=== PATIENT | female | born 1995 | race Caucasian/White ===

== ENCOUNTER 2020-09-27 10:17 | Emergency (ER) | payer SELFPAY ==
--- OUTSIDE RECORDS SUMMARY | 2020-09-27 10:20 | XMS REPORT | Continuity of Care Document ---
:1995 Author Organization [facility] t Address [address] [place] [address] Care Team Providers Name Role Phone JEANNA Attending Clinician Unavailable Jeanna Attending Clinician [place] Admitting Clinician Problems Condition Condition Condition Status Onset Resolution Last Treating Co mments Source Name Details Category Date Date Treatment Clinician Date Ankle pain Problem Active 2019-11-17 M emoria (finding) 06-03 04:01:40 l Ankle 00:00: [place] pain 00 (finding) Active 06/04/2019 Problem 11/17/2019 reports over the years she has had multiple ankle problems/ injuries. is on her feet at work alld day. wore ankle boot - had MRI's done. was instructed by doctor to take ankle boot off 10/18/2019 [facility] Vitamin D Problem Active 2019-11-17 Me moria deficiency 1- 04:01:40 l (disorder) Vitamin 00:00: Her chacon D 00 deficiency (disorder) Active 02/15/2012 Problem 11/17/2019 prescribe d vit d - [facility] will start vitamins after surgery [facility] Asthma Problem Active 1996-2019-11-17 Memor ia (disorder) 1- 04:01:40 l Asthma 00:00: Nguyễn (disorder) 00 Active 02/15/1996 Problem 11/17/2019 states related to anxiety attacks- Last used inhaler > 1 yr ago [facility] Swollen Problem Active 2019-11-17 Merlin will ankle 04:01:40 l (finding) Swollen Herm roxane ankle (finding) Active Problem 11/17/2019 [facility] Anxiety Problem Active 2019-11-17 Merlin will (finding) 04:01:40 l Anxiety Nguyễn (finding) Active Problem 11/17/2019 states no meds at this time [facility] Obesity Problem Active 2019-11-17 Merlin will (disorder) 04:01:40 l Obesity Nguyễn (disorder) Active Problem 11/17/2019 [facility] Sprain of Problem Active 2019-11-17 Me moria ankle 04:01:40 l (disorder) Sprain Herm roxane of ankle (disorder) Active Problem 11/17/2019 states over the years she has had multiple ankle injuries [facility] Instabilit Instabilit Problem Active U nivers y of right y of right it y of ankle ankle [place] [facility] Phys[facility] ans Sprain of Sprain of Problem Active Uni vers anterior anterior ity of talofib[place]ofibula [place] r ligament r ligament Ph ysici of right of right ans ankle, ankle, initial initial encounter encounter Posterior Posterior Problem Active Uni vers tibial tibial ity of tendinitis tendinitis [place] of right of right Physic i lower lower ans extremity extremity Ganglion Ganglion Problem Active Unive rs cyst of cyst of ity of right foot right foot [place] [facility] Right Right Problem Active Univers ankle pain ankle pain it y of [place] Physici ans Special Special Problem Active Univers screening screening ity of examinatio examinatio [place] for n for Physici other other ans specified specified viral viral diseases diseases Sprain of Sprain of Problem Active Uni vers anterior anterior ity of talofibula talofibula [place] ligament r ligament Ph ysici of right of right ans ankle, ankle, subsequent subsequent encounter encounter Plantar Plantar Problem Active Univers fasciitis fasciitis ity of [place] Physici ans Allergies, Adverse Reactions, Alerts Allergy Allergy Status Severity Reaction(s) Onset Inactive Treating Comm ents Source Name Type Date Date Clinician penicill penicill Active Moderate Merlin will in in l [place] Social History Social Habit Start Date Stop Date Quantity Comments Source Social History 2019-11-12 2019-11-[address] [facility] Kami weston 14:52:29 14:52:29 Smoking Status Start Date Stop Date Source Never smoked tobacco (finding) [facility] Physicians Medications Ordered Filled Start Stop Current Ordering Indication Dosage Frequency Signature Comments Components Source Medication Medication Date Date Medication? Clinician (SIG) Name Name [facility] 2019-02 No 600 mL, Memoria Medication 0-01 Soln-IV, l 15:17: IV, Once, first dose 11/15/19 10:17:00 CDT, stop date 11/15/19 10:17:00 CDT fentaNYL 2019-02 No 50 mcg = 1 Mem oria 0-01 mL, l 14:43: Injection, Nguyễn 00 IV, Once, first dose 11/15/19 9:43:00 CDT, stop date 11/15/19 9:43:00 CDT fentaNYL 2019-02 No 50 mcg = 1 Mem oria 0-01 mL, l 14:28: Injection, IV, Once, first dose 11/15/19 9:28:00 CDT, stop date 11/15/19 9:28:00 CDT [facility] 2019-02 No 1,000 mL, Memoria Medication 0-01 Soln-IV, l 13:45: IV, Once, first dose 11/15/19 8:45:00 CDT, stop date 11/15/19 8:45:00 CDT fentaNYL 2019-02 No 50 mcg = 1 Mem oria 0-01 mL, l 13:18: Injection, Nguyễn 00 IV, Once, first dose 11/15/19 8:18:00 CDT, stop date 11/15/19 8:18:00 CDT LR 1,000 mL 2019-02 No 1,000 mL, M emoria 0-01 IV, 75 l 13:04: mL/hr, start date 11/15/19 8:04:00 CDT, 2.3, m2 Saline Lock 2019-02 No 10 mL, Merlin will Flush 0-01 Soln, IV l 13:04: Push, As Indicated PRN for flush, first dose 11/15/19 8:04:00 CDT Bupivacaine 2019-02 No 300 mL, Mem oria 0.25% 300 0-01 Nerve l mL pump 300 13:04: Block, 5 He rmann mL 00 mL/hr, start date 11/15/19 8:04:00 CDT, 2.3, m2 Dilaudid 2019-02 No 0.5 mg = Memor ia 0-01 0.5 mL, l 13:04: Injection, Alden 00 IV Push, q10min PRN for pain severe (7-10), first dose 11/15/19 8:04:00 CDT Demerol HCl 2019-02 No 12.5 mg = M emoria 0-01 0.5 mL, l 13:04: Injection, Alden 00 IV Push, Once PRN for shivers, first dose 11/15/19 8:04:00 CDT Levalbutero 2019-02 No 0.63 mg = M emoria l 0.21 0-01 3 mL, l MG/ML 13:04: Soln, DHAVAL, Mahendra n Inhalant 00 Once PRN Solution for [Xopenex] wheezing, first dose 11/15/19 8:04:00 CDT Ondansetron 2019-02 No 4 mg = 2 Me moria 0-01 mL, l 13:04: Injection, Nguyễn 00 IV Push, q15min PRN for nausea, order duration: 2 doses, first dose 11/15/19 8:04:00 CDT, stop date Limited # of times Promethazin 2019-02 No 12.5 mg = M emoria e 0-01 0.5 mL, l 13:04: Injection, Ald[place] 00 IM, Once PRN for vomiting, first dose 11/15/19 8:04:00 CDT Labetalol 2019-02 No 5 mg = 1 Merlin will 0-01 mL, l 13:04: Injection, Nguyễn 00 IV Push, As Indicated PRN for hypertensi on, first dose 11/15/19 8:04:00 CDT, SBP Hold Parameter: less than 110 mmHg, HR Hold Parameter: less than 60 bpm Hydralazine 2019-02 No 10 mg = Mem oria 0-01 0.5 mL, l 13:04: Injection, Nguyễn 00 IV Push, As Indicated PRN for hypertensi on, first dose 11/15/19 8:04:00 CDT, SBP Hold Parameter: less than 110 mmHg Diphenhydra 2019-02 No 25 mg = Mem oria mine 0-01 0.5 mL, l 13:04: Injection, [place] 00 IV Push, Once PRN for itching, first dose 11/15/19 8:04:00 CDT ondansetron 2019-02 No 4 mg = 2 Me moria 0-01 mL, l 13:01: Injection, Nguyễn 00 IV, Once, first dose 11/15/19 8:01:00 CDT, stop date 11/15/19 8:01:00 CDT dexamethaso 2019-02 No 8 mg = 2 Me moria ne 0-01 mL, l 13:01: Injection, IV, Once, first dose 11/15/19 8:01:00 CDT, stop date 11/15/19 8:01:00 CDT ketorolac 2019-02 No 30 mg = 1 Mem oria 0-01 mL, l 13:01: Injection, IV, Once, first dose 11/15/19 8:01:00 CDT, stop date 11/15/19 8:01:00 CDT clindamycin 2019-02 No 900 mg, Mem oria 0-01 Soln-IV, l 13:00: IV Nguyễn 00 Piggyback, Once, first dose 11/15/19 8:00:00 CDT, stop date 11/15/19 8:00:00 CDT lidocaine 2019-02 No 60 mg = 3 Mem oria 0-01 mL, l 12:44: Injection, IV, Once, first dose 11/15/19 7:44:00 CDT, stop date 11/15/19 7:44:00 CDT propofol 2019-02 No 150 mg = Memor ia 0-01 15 mL, l 12:44: Emulsion, Nguyễn 00 IV, Once, first dose 11/15/19 7:44:00 CDT, stop date 11/15/19 7:44:00 CDT midazolam 2019-02 No 1 mg = 1 Merlin will 0-01 mL, l 12:42: Injection, Nguyễn IV, Once, first dose 11/15/19 7:42:00 CDT, stop date 11/15/19 7:42:00 CDT fentaNYL 2019-02 No 50 mcg = 1 Mem oria 0-01 mL, l 12:42: Injection, Nguyễn 00 IV, Once, first dose 11/15/19 7:42:00 CDT, stop date 11/15/19 7:42:00 CDT midazolam 2019-02 No 1 mg = 1 Merlin will 0-01 mL, l 12:22: Injection, Nguyễn 00 IV, Once, first dose 11/15/19 7:22:00 CDT, stop date 11/15/19 7:22:00 CDT fentaNYL 2019-02 No 50 mcg = 1 Mem oria 0-01 mL, l 12:22: Injection, Nguyễn 00 IV, Once, first dose 11/15/19 7:22:00 CDT, stop date 11/15/19 7:22:00 CDT Clindamycin 2019-02 No 900 mg, Mem oria 0-01 Soln-IV, l 12:00: IV [place] Piggyback, Once, infuse over 30 minutes, first dose 11/15/19 7:00:00 CDT, stop date 11/15/19 7:00:00 CDT, Prophylaxi s LR 1,000 mL 2019-02 No 1,000 mL, M emoria 0-01 IV, 30 l 11:18: mL/hr, Nguyễn 00 start date 11/15/19 6:18:00 CDT, 2.3, m2 Lidocaine 2019-02 No 0.2 mL, Memor ia 2% 0.2 mL 001 Injection, l IV Start 11:18: Subcutaneo Her chacon [[facility]] 00 us, Once PRN for other (see comment), first dose 11/15/19 6:18:00 CDT ergocalcife Yes 50,000 Merlin will rol 50,000 9-28 IntUnit = l intl units 14:45: 1 caps, Herm roxane (1.25 mg) 00 Oral, oral qWeek, 0 capsule Refill(s), supplement Vital Signs Vital Name Observation Time Observation Value Comments Source Respitory Rate 2019-11-15 16:44:00 [place] Heart Rate 2019-11-15 16:00:00 [facility] [place] Respitory Rate 2019-11-15 16:00:00 Memori al [place] Systolic (mm Hg) 2019-11-15 16:00:00 Merlin rial [place] Diastolic (mm Hg) 2019-11-15 16:00:00 Mem orial Nguy[address]n Heart Rate 2019-11-15 15:50:00 [facility] [address] Respitory Rate 2019-11-15 15:50:00 Memori al [place] Systolic (mm Hg) 2019-11-15 15:50:00 Merlin rial [address] Diastolic (mm Hg) 2019-11-15 15:50:00 Mem orial [address] Heart Rate 2019-11-15 15:40:00 [facility] [address] Systolic (mm Hg) 2019-11-15 15:40:00 Merlin rial [address] Diastolic (mm Hg) 2019-11-15 15:40:00 Mem orial [place] Temperature Oral (F) 2019-11-15 15:10:00 36.8 [facility] N[facility]n Temperature Oral (F) 2019-11-15 11:23:00 37 [facility] [place] Height 2019-11-15 11:23:00 160 cm [facility] [place] Height 2019-11-12 14:43:00 160 cm [facility] [place] Systolic blood 2019-10-18 15:09:00 153 mm[Hg] Univer sity of pressure [place] [facility]ician s Diastolic blood 2019-10-18 15:09:00 101 mm[Hg] Unive rsity of pressure [place] Physician s Body height 2019-10-18 15:09:00 63 [in_us] [facility] Physician s Weight 2019-10-18 15:09:00 300 [lb_av] [facility] Physician s Body mass index 2019-10-18 15:09:00 53.14 kg/m2 Unive rsity of (BMI) [Ratio] [place] [facility] Heart Rate 2019-10-18 15:09:00 101 /min [facility] Physician s Procedures Procedure Date / Time Performing Clinician Source Performed MR Ankle wo contrast [id number] 2020-[facility]-06 [facility] Promis [facility] Survey 2019-12-05 00:00:00 Uni versity [facility] Physicians APPLICATION SHORT LEG 2019-11-15 13:19:00 Willy al [place] SPLINT-CALF TO FOOT [id number] (Right)<sup>1</sup> ARTHROSCOPY ANKLE 2019-11-15 13:19:[address] [facility] Kami weston W/EXTENSIVE DEBRIBEMENT [id number] (Right)<sup>2</sup> COLLATERAL LIGAMENT 2019-11-15 13:19:[address] [facility] [place] PRIMARY REPAIR ANKLE [id number] (Right)<sup>3</sup> [UTP] Ortho - Surgery 2019-10-19 00:00:00 [facility] Scheduling Physicians [L] 2019 Novel Coronavirus 2019-10-19 00:00[facility] 2014-02-14 06:00:00 [facility] section<sup>4</sup> Cholecystectomy [facility] History of [place] o f [place] Section Physicians History of [facility] surgery Physicians History of Ankle Surgery [facility] Physicians Plan of Care Planned Activity Planned Date Details Comments Source Diagnostic Test 2019-10-19 [UTP] [facility] Pending 00:00:00 Surgery Scheduling Physician s [code = [UTP] Ortho - Surgery Scheduling] Diagnostic Test 2019-10-19 [L] 2019 [facility] Pending 00:00:00 Coronavirus Physicians (COVID-19), ARTURO [code = 906200] Encounters Start End Encounter Admission Attending Care Care Encounter Source Date/Time Date/Time Type Type Clinicians Facility Department ID 2020-05-14 2020-05-14 [facility] [id number] Univers 14:15:00 14:15:00 t; ERICKA MEEKS, - [place], DPM [place] [address] [place] DPM Physici ans 2020-05-06 2020-05-06 Appointdeshaun [facility] Orth[facility] [id number] Univers 10:45:00 10:45:00 t; ERICKA MEEKS, - [place], D[place] [address] [place] DPM Physici ans 2020-01-24 2020-01-24 Appointdeshaun [facility] Orth[facility] [id number] Univers 14:15:00 14:15:00 t; ERICKA MEEKS, - [place], DPM [place] [address] [place] DPM Physici ans 2019-12-28 2019-12-28 Appointdeshaun MEEKS [facility] [id number] Univers 10:15:00 10:15:00 t; ERICKA MEEKS, [place], DPM [place] DPM Physici ans 2019-12-27 2019-12-27 Appointdeshaun [facility] Orthopedics [id number] Univers 14:00:00 14:00:00 t; ERICKA MEEKS, - [place] D[place] DPM Physici ans 2019-12-14 2019-12-14 [facility] [id number] Univers 10:15:00 10:15:00 t; ERICKA MEEKS, - [place] D[place] DPM Physici ans 2019-11-26 2019-11-26 [facility] [id number] Univers 11:30:00 11:30:00 t; ERICKA MEEKS, - [place], D[place] DPM Physici ans 2019-11-15 2019-11-15 Outpatient nullFlavo [facility] [id number] Memoria 10:51:58 17:15:00 r [facility] 2019-11-15 2019-11-15 Outpatient nullFlavo [facility] [id number] Memoria 05:51:58 12:15:00 r [facility] 2019-11-15 2019-11-15 Outpatient Jeanna, [id number] 05:51:58 12:15:00 Ericka 8 2019-11-15 2019-11-15 [facility] [id number] Univers 07:30:00 07:30:00 t; ERICKA MEEKS, - [place], DPM [place] DPM Physici ans 2019-10-18 2019-10-18 [facility] [id number] Univers 14:30:00 14:30:00 t; ERICKA MEEKS, - [place], D[place] DPM Physici ans Results Test Description Test Time Test Comments Results Result Comments Source LABORATORY 2019-11-15 Negative, [facility] 11:18:00 Control [place] Present (11/15/19 6:18 AM)
--- NOTE | 2020-09-27 12:53 | RAD REPORT ---
EXAM DESCRIPTION: US - Transvaginal OB - 09/27/2020 12:32 pm CLINICAL HISTORY: VAGINAL BLEEDING, Preliminary findings provided at the time of the study. COMPARISON: No comparisons FINDINGS: Endovaginal and limited transabdominal sonography performed. No normal intrauterine gestational sac identified. A small 7 mm oval cystic mass in the cervix is not ed. This may simply be a nabothian cyst rather than a low-lying gestational sac. Endometrial stripe i s 11 mm with a normal endometrium - myometrium interface. No discrete endometrial mass or polyp. Left ovary is identified and normal. No left adnexal abnormality. Right ovary could not be identified due to prominent bowel. No right adnexal abnormality. IMPRESSION: No intrauterine gestational sac or sac remnant identified. No sonographic findings to stein spect ectopic . A 7 mm cystic mass in the cervix may simply be a nabothian cyst rather than abnormally positioned ges tational sac or blighted ovum. Follow-up sonography could be performed if serial beta HCG studies indicate ongoing .
[2020-09-27 13:28] LABS: Absolute Lymphocytes (CBC) 2.5 K/uL (0.7-4.9); Basophils % 1.3 % (0-1.3); Hematocrit 43.6 % (36.0-45.0); Lymphocytes % 30.7 % (15.3-44.8); MPV 9.3 fL (7.6-11.3); RBC Red Blood Cell Count 5.37 M/uL (3.86-4.86)
[2020-09-27 13:47] LABS: BUN Blood Urea Nitrogen 16 mg/dL (7-18); Bicarbonate 26 mmol/L (21-32); Glucose Level 90 mg/dL (74-106); HCG, Quantitative 17 mIU/mL (1-3); Potassium 3.7 mmol/L (3.5-5.1); Sodium Level 140 mmol/L (136-145)
--- NOTE | 2020-09-27 14:43 | EDPHYS ---
Physician Documentation [facility] Name: Jane Lechuga Age: 25 yrs Sex: Female : 1995 Arrival Date: 09/27/2020 Time: 10:19 Bed DIS2 Private MD: ED Physician Gee Moulton HPI: 09/27 15:05 This 25 yrs old Female presents to ER via Ambulatory with complaints of tw4 Vaginal Bleeding, + Preg <12wks. 15:05 The patient presents to the emergency department with vaginal bleeding, described as tw4 spotting. course: care: none. Associated signs and symptoms: The patient has no apparent associated signs or symptoms. The patient has not experienced similar symptoms in the past. VERIFICATION ENGINEER: 15:05 1, Full Term 0, Premature 0, 0, Living 0 tw4 Historical: - Allergies: 10:43 PENICILLINS; ss - PMHx: 10:43 Asthma; ss - PSHx: 10:43 R ankle; section; Cholecystectomy; ss - Immunization history:: Adult Immunizations up to date. - Social history:: Smoking status: Patient denies any tobacco usage or history of. ROS: 15:05 Constitutional: Negative for fever, chills, and weight loss, Eyes: Negative for injury, tw4 pain, redness, and discharge, Cardiovascular: Negative for chest pain, palpitations, and edema, Respiratory: Negative for shortness of breath, cough, wheezing, and pleuritic chest pain, Abdomen/GI: Negative for abdominal pain, nausea, vomiting, diarrhea, and constipation, Back: Negative for injury and pain, Skin: Negative for injury, rash, and discoloration, Neuro: Negative for headache, weakness, numbness, tingling, and seizure, Psych: Negative for depression, anxiety, suicide ideation, homicidal ideation, and hallucinations. 15:05 : Positive for vaginal bleeding. Exam: 15:05 Constitutional: This is a well developed, well nourished patient who is awake, alert, tw4 and in no acute distress. Head/Face: Normocephalic, atraumatic. Chest/axilla: Normal chest wall appearance and motion. Nontender with no deformity. No lesions are appreciated. Cardiovascular: Regular rate and rhythm with a normal S1 and S2. No gallops, murmurs, or rubs. Normal PMI, no JVD. No pulse deficits. Respiratory: Lungs have equal breath sounds bilaterally, clear to auscultation and percussion. No rales, rhonchi or wheezes noted. No increased work of breathing, no retractions or nasal flaring. Abdomen/GI: Soft, non-tender, with normal bowel sounds. No distension or tympany. No guarding or rebound. No evidence of tenderness throughout. Back: No spinal tenderness. No costovertebral tenderness. Full range of motion. 15:05 : Pelvic Exam: The exam is refused by the patient/guardian. The risks and consequences are understood by the patient, the exam is deferred. Vital Signs: 10:42 BP 131 / 85; Pulse 71; Resp 16; Temp 97.3(TE); Pulse Ox 100% on R/A; Weight 131.54 kg; ss Height 5 ft. 3 in. (160.02 cm); Pain 2/10; 10:42 Body Mass Index 51.37 (131.54 kg, 160.02 cm) ss MDM: 14:42 Patient medically screened. tw4 15:05 Data reviewed: vital signs, nurses notes. Data reviewed: lab test result(s), Beta HCG: tw4 hCG is 17 radiologic studies, ultrasound. Data interpreted: Pulse oximetry: Interpretation: normal. Counseling: I had a detailed discussion with the patient and/or guardian regarding: the historical points, exam findings, and any diagnostic results supporting the discharge/admit diagnosis, lab results, radiology results. Special discussion: I discussed with the patient/guardian in detail that at this point there is no indication for admission to the hospital. It is understood, however, that if the symptoms persist or worsen the patient needs to return immediately for re-evaluation. Based on the history and exam findings, there is no indication for further emergent testing or inpatient evaluation. I discussed with the patient/guardian the need to see the OB Gyne specialist for further evaluation of the symptoms. 09/27 10:46 Order name: Abo/rh Typing [facility] 09/27 10:46 Order name: Basic Metabolic Panel [facility] 09/27 10:46 Order name: CBC with Diff [facility] 09/27 10:46 Order name: Quantitative Hcg 09/27 10:46 Order name: ABO/RH typing EDSD 09/27 10:46 Order name: Basic Metabolic Panel; Complete Time: 14:39 EDMS 09/27 14:39 Interpretation: Normal except: CL 111. tw4 09/27 10:46 Order name: IV Saline Lock; Complete Time: 13:05 tw4 09/27 10:46 Order name: Labs collected and sent; Complete Time: 13:05 tw4 09/27 10:46 Order name: NPO; Complete Time: 13:05 tw4 09/27 10:46 Order name: Urine Dipstick-Ancillary (obtain specimen) tw4 09/27 10:46 Order name: CBC with Automated Diff; Complete Time: 14:39 EDMS 09/27 14:39 Interpretation: Normal except: RBC 5.37; MCH 27.3; MCV 81.1. tw4 09/27 10:46 Order name: HCG, Quantitative; Complete Time: 14:38 EDMS 09/27 14:39 Interpretation: Within normal limits: HCGQ 17. tw4 09/27 12:32 Order name: Transvaginal OB EDMS Administered Medications: No medications were administered Disposition Summary: 09/27/20 14:42 Discharge Ordered Location: Home tw4 Problem: new tw4 Symptoms: have improved tw4 Condition: Stable tw4 Diagnosis - Abnormal uterine and vaginal bleeding, unspecified tw4 Followup: tw4 - With: Private Physician - When: Upon discharge from the Emergency Department - Reason: Recheck today's complaints, Continuance of care, Re-evaluation by your physician Discharge Instructions: - Discharge Summary Sheet tw4 - Abnormal Uterine Bleeding tw4 - Dysfunctional Uterine Bleeding tw4 Forms: - Medication Reconciliation Form tw4 - Thank You Letter tw4 - Antibiotic Education tw4 - Prescription Opioid Use tw4 Signatures: Dispatcher [employer] EDMS Rachelle Pompa RN RN Gee Willoughby MD MD tw4 Corrections: (The following items were deleted from the chart) 12:32 10:46 1st Trimest Single 1st Fetus+US.RAD.BRZ ordered. EDSD EDMS
--- NOTE | 2020-09-27 14:43 | ER ---
Nurse's Notes [facility] Name: Jane Lechuga Age: 25 yrs Sex: Female : 1995 Arrival Date: 09/27/2020 Time: 10:19 Bed DIS2 Private MD: Diagnosis: Abnormal uterine and vaginal bleeding, unspecified Presentation: 09/27 10:42 Chief complaint: Patient states: +UPT last week. Vaginal spotting that began this ss morning. Coronavirus screen: Client denies travel out of the [place] in the last 14 days. Ebola Screen: Patient denies exposure to infectious person. Patient denies travel to an Ebola-affected area in the 21 days before illness onset. Initial Sepsis Screen: Does the patient meet any 2 criteria? No. Patient's initial sepsis screen is negative. Does the patient have a suspected source of infection? No. Patient's initial sepsis screen is negative. Risk Assessment: Do you want to hurt yourself or someone else? Patient reports no desire to harm self or others. Onset of symptoms was September 27, 2020. 10:42 Method Of Arrival: Ambulatory ss 10:42 Acuity: LENORE 3 ss FISHER NET: 15:05 1, Full Term 0, Premature 0, 0, Living 0 tw4 Historical: - Allergies: 10:43 PENICILLINS; ss - PMHx: 10:43 Asthma; ss - PSHx: 10:43 R ankle; section; Cholecystectomy; ss - Immunization history:: Adult Immunizations up to date. - Social history:: Smoking status: Patient denies any tobacco usage or history of. Screenin:11 Abuse screen: Denies threats or abuse. Denies injuries from another. Nutritional ss screening: No deficits noted. Tuberculosis screening: Never had TB. Fall Risk None identified. Assessment: 15:11 Reassessment: Patient appears in no apparent distress at this time. Patient and/or ss family updated on plan of care and expected duration. Pain level reassessed. Patient is alert, oriented x 3, equal unlabored respirations, skin warm/dry/pink. Vital Signs: 10:42 BP 131 / 85; Pulse 71; Resp 16; Temp 97.3(TE); Pulse Ox 100% on R/A; Weight 131.54 kg; ss Height 5 ft. 3 in. (160.02 cm); Pain 2/10; 10:42 Body Mass Index 51.37 (131.54 kg, 160.02 cm) ED Course: 10:19 Patient arrived in ED. ds1 10:43 Triage completed. ss 10:43 Arm band placed on right wrist. ss 10:59 Gee Moulton MD is Attending Physician. tw4 12:32 Transvaginal OB In Process Unspecified. EDMS 13:04 Inserted saline lock: 20 gauge in left antecubital area, using aseptic technique. Blood 4 collected. 15:10 Rachelle Pompa, RN is Primary Nurse. ss 15:11 Patient has correct armband on for positive identification. ss 15:11 No provider procedures requiring assistance completed. IV discontinued, intact, ss bleeding controlled, No redness/swelling at site. Pressure dressing applied. Administered Medications: No medications were administered Outcome: 14:42 Discharge ordered by . tw4 15:11 Discharged to home ambulatory. ss 15:11 Condition: good 15:11 Discharge instructions given to patient, Instructed on discharge instructions, follow up and referral plans. medication usage, Demonstrated understanding of instructions, follow-up care. 15:12 Patient left the ED. Signatures: Dispatcher [employer] EDOH Jennifer Graf ds1 Rachelle Pompa, MIKAYLA RN Gee Moutlon MD MD tw4 Erwin Robison 4
[2020-09-27 15:45] VITALS: BP 131/85; TEMP 97.3; O2SAT 100
== END 2020-09-27 15:12 | disposition home or self-care (01) ==
LOC: ER 10:17
DX: N93.9 Abnormal uterine and vaginal bleeding, unspecified (principal); Z88.0 Allergy status to penicillin
CPT/HCPCS: 36415; 76817; 80048; 84702; 85025; 86900; 86901; 99283

== ENCOUNTER 2022-12-16 19:42 | Emergency (ER) | payer BC, SELFPAY ==
--- OUTSIDE RECORDS SUMMARY | 2022-12-16 19:47 | XMS REPORT | Continuity of Care Document ---
:1995 Author Organization [facility] t Address [address] [place] [address] Care Team Providers Name Role Phone No , Pcp Primary Care Physician Unavailable ERICKA MEEKS S Attending Clinician Unavailable ERICKA MEEKS Attending Clinician Unavailable NANCY RICO Attending Clinician Unavailable Joanna Marinelli RD Attending Clinician GERI Attending Clinician Unavailable SARAH Attending Clinician Unavailable ERICKA MEEKS DPM Attending Clinician Unavailable Joseph Attending Clinician Unavailable GERI Admitting Clinician Unavailable SARAH Admitting Clinician Unavailable Ericka Meeks Admitting Clinician Joseph Admitting Clinician Unavailable Payers Payer Name Policy Type Policy Number Effective Date Expiration Date S ource [employer] P[employer] [id number] 2020 2020 [employer] 00:00:00 00:00:00 GENERIC INTERFACED [id number] 2021 2024 [facility] PLAN 00:00:00 00:00:00 [place] [id number] 2022 [facility] 00:00:00 [place] [id number] 2017 2023 00:00:00 00:00:00 Problems Condition Condition Condition Status Onset Resolution Last Treating Co mments Source Name Details Category Date Date Treatment Clinician Date Plantar Plantar Disease Active [facility] fasciitis fasciitis 08-10 Heal th 00:00: 00 Malaise Malaise Problem Active [place] - Commun[facility] 00:00: ty 00 [facility] Clin[facility] Pain of Pain of Problem Active [place] right knee Right Knee 03-08 Co [facility]i joint Joint 00:00: ty 00 [facility] Clin[facility] Prediabete Prediabete Problem Active 2021-02 Yong johnson s s 2-14 Communi 00:00: ty 00 [facility] Gastroesop Gastroesop Problem Active 2021-02 Yong johnson hageal hageal 2-07 Communi reflux Reflux 00:00: ty disease Disease 00 Hospita without without l esophagiti Esophagiti Cl inics s s Hyperglyce Hyperglyce Problem Active 2021-02 Yong johnson marciano marciano 2-07 Communi 00:00: ty 00 [facility]ospita l Clinics Migraine Migraine Problem Active 2021-02 Benefitter 03-15 Communi 00:00: ty 00 [facility] Clinics Adult Adult Problem Active 2021-02 [place] 03-15 Communi examinatio Examinatio 00:00: ty n n 00 Hospita l Clinics Obesity Obesity Problem Active 2021-02 [place] 03-15 Communi 00:00: ty 00 [facility]ospita [facility] Clinics Sprain of Sprain of Disease Active [facility] anterior anterior 8-10 Health talofibula talofibula 00:00: r ligament r ligament 00 of right of right ankle ankle Right foot Right foot Disease Active U T pain pain 2-08 Health 00:00: 00 Posterior Posterior Disease Active [facility] tibial tibial 1-10 Health tendinitis tendinitis 00:00: of right of right 00 lower lower extremity extremity Anterior Anterior Disease Active 2022-0 [facility] tibialis tibialis 1-10 Health tendinitis tendinitis 00:00: of right of right 00 lower lower extremity extremity Soft Soft Disease Active [facility] tissue tissue 1-10 Health mass mass 00:00: 00 Pain in Pain in Disease Active [facility] joint joint 1-10 Health involving involving 00:00: right right 00 ankle and ankle and foot foot Extensor Extensor Disease Active [facility] tendonitis tendonitis 1-10 He alth of foot of foot 00:00: 00 Ankle pain Ankle Problem Active 2019-11-03 M emoria (finding) pain 4-20 04:01:40 l (finding) 00:00: Nguyễn Active 00 06/04/2019 Problem 11/17/2019 reports over the years she has had multiple ankle problems/ injuries. States is on her feet at work alld day. wore ankle boot - had MRI's done. was instructed by doctor to take ankle boot off 10/18/2019 [facility] Pain in Pain in Problem Active [place] right foot Right Foot 3-09 Co m[facility]i 00:00: ty 00 Hospita Clinics Morbid Morbid Problem Active [place] obesity Obesity 1-06 Communi 00:00: ty 00 [facility]ospita Clinics Acute Acute Problem Active 2018- [place] pharyngiti Pharyngiti 7-25 Co mmuni s s 00:00: ty 00 Hospita Clinics Chronic Chronic Problem Active 2018- [place] bronchitis Bronchitis 7-25 Co mmuni 00:00: ty 00 Hospita l Clinics Acute left Acute Left Problem Active 2018- S weeny otitis Otitis 7-25 Communi media Media 00:00: ty 00 Hospita Clinics Dizziness Dizziness Problem Active 2017- Swe honorio 2-17 Communi 00:00: ty 00 Hospita Clinics Edema Edema Problem Active 2017- [place] 2-17 Communi 00:00: ty 00 Hospita Clinics Anxiety Anxiety Problem Active 2017- [place] disorder Disorder 8-23 Commun i 00:00: ty 00 Hospita l Clinics Chronic Chronic Problem Active 2017- [place] depression Depression 8-23 Co mmuni 00:00: ty 00 Hospita Clinics Attention Attention Problem Active 2017- [place] honorio deficit Deficit 8-23 Communi hyperactiv Hyperactiv 00:00: ty ity ity 00 Hospita disorder Disorder l Clinics Insomnia Insomnia Problem Active [place] 10-06 Communi 00:00: ty 00 [facility]ospita l Clinics Gastroesop Gastroesop Problem Active S alex griffiths hageal 10-06 Communi reflux Reflux 00:00: ty disease Disease 00 Hospita l Clinics Bipolar Bipolar Problem Active [place] disorder Disorder 10-06 Commun i 00:00: ty 00 Hospita l Clinics Vitamin D Vitamin D Problem Active 2019-11-17 Memoria deficiency deficiency 02-14 04:01:40 l (disorder) (disorder) 00:00: He rmann Active 00 02/15/2012 Problem 11/17/2019 prescribed vit d - states will start vitamins after surgery [facility] Asthma Asthma Problem Active 2019-11-17 Merlin will (disorder) (disorder) 02-14 04:01:40 l Active 00:00: Nguyễn 02/15/1996 00 Problem 11/17/2019 states related to anxiety attacks- Last used inhaler > 1 yr ago [facility] Instabilit Instabilit Problem Active U T y of right y of right Ph ysici ankle ankle ans joint joint Sprain of Sprain of Problem Active UT anterior anterior Physic i talofibula talofibula an s r ligament r ligament of right of right ankle, ankle, initial initial encounter encounter Posterior Posterior Problem Active UT tibial tibial Physici tendinitis tendinitis an s of right of right lower lower extremity extremity Ganglion Ganglion Problem Active UT cyst of cyst of Physici right foot right foot an s Right Right Problem Active UT ankle pain ankle pain Ph ysici ans Special Special Problem Active UT screening screening Phys ici examinatio examinatio an s n for n for other other specified specified viral viral diseases diseases Sprain of Sprain of Problem Active [facility] anterior anterior Physic i talofibula talofibula an s r ligament r ligament of right of right ankle, ankle, subsequent subsequent encounter encounter Plantar Plantar Problem Active [facility] fasciitis fasciitis Phys ici ans Swollen Swollen Problem Active 2019-11-17 Me moria ankle ankle 04:01:40 l (finding) (finding) Herm fatou Active Problem 11/17/2019 [facility] Anxiety Anxiety Problem Active 2019-11-17 Me moria (finding) (finding) 04:01:40 l Active [place] Problem 11/17/2019 states no meds at this time [facility] Sprain of Sprain of Problem Active 2019-11-17 Memoria ankle ankle 04:01:40 l (disorder) (disorder) Mani rmann Active Problem 11/17/2019 states over the years she has had multiple ankle injuries [facility] Allergies, Adverse Reactions, Alerts Allergy Allergy Status Severity Reaction(s) Onset Inactive Treating Comm ents Source Name Type Date Date Clinician Penicill Allergy Active Hives [facility] ins to 10-29 Health substan 00:00: e 00 penicill penicill Active Moderate Merlin will in in l Nguyễn PENICILL Allergy Active Severe Anaphylaxis [place] [facility] INS to Communi [facility] e Hospita l Clinics Social History Social Habit Start Date Stop Date Quantity Comments Source History of Passive smoker [facility] tobacco use Alcohol intake 2022-08-29 2022-08-29 Current drinker UT He alth 00:00:00 00:00:00 of alcohol (finding) Tobacco use and 2022-08-26 2022-08-26 Smokeless tobacco [facility] Health exposure 00:00:00 00:00:00 non-user Exposure to 2021-09-27 2021-10-07 Not sure [facility] SARS-CoV-2 00:00:00 15:15:00 (event) Social History 2019-11-12 2019-11-12 [facility] Kami sappfatou 14:52:29 14:52:29 Sex Ass[birth year] At [birth year] [facility] 00:00:00 00:00:00 Smoking Status Start Date Stop Date Source Never smoked tobacco (finding) [facility] Tobacco smoking consumption ID H ealth unknown Ex-smoker 2022-08-26 00:00:00 2022-08-26 00:00:00 [facility] Medications Ordered Filled Start Stop Current Ordering Indication Dosage Frequency Signature Comments Components Source Medication Medication Date Date Medication? Clinician (SIG) Name Name medroxyPROG 3-0 Yes [facility] ESTERone 7-12 Health (Provera) 00:00: 10 MG 00 tablet medroxyPROG 2023-0 Yes [facility] ESTERone 7-12 Health (Provera) 00:00: 10 MG 00 tablet medroxyPROG 2023-0 Yes [facility] ESTERone 7-12 Health (Provera) 00:00: 10 MG 00 tablet medroxyPROG 2023-0 Yes [facility] ESTERone 7-12 Health (Provera) 00:00: 10 MG 00 tablet No known 2021-0 No No known UT medications 8-24 medication He alth 15:28: s 10 cyclobenzap 2022-0 Yes [id number] 10mg Q.5D Take 1 UT rine 8-10 [id number] tablet (10 Health (Flexeril) 00:00: mg total) 10 MG 00 by mouth 2 tablet (two) times a day if needed for muscle spasms for up to 10 days. cyclobenzap 2021-0 Yes [id number] 10mg Q.5D Take 1 UT rine 8-10 [id number] tablet (10 Health (Flexeril) 00:00: mg total) 10 MG 00 by mouth 2 tablet (two) times a day if needed for muscle spasms for up to 10 days. cyclobenzap 2021-0 Yes [id number] 10mg Q.5D Take 1 UT rine 8-10 [id number] tablet (10 Health (Flexeril) 00:00: mg total) 10 MG 00 by mouth 2 tablet (two) times a day if needed for muscle spasms for up to 10 days. cyclobenzap 2021-0 Yes [id number] 10mg Q.5D Take 1 UT rine 8-10 [id number] tablet (10 Health (Flexeril) 00:00: mg total) 10 MG 00 by mouth 2 tablet (two) times a day if needed for muscle spasms for up to 10 days. cyclobenzap 2021-0 Yes [id number] 10mg Q.5D Take 1 UT rine 8-10 [id number] tablet (10 Health (Flexeril) 00:00: mg total) 10 MG 00 by mouth 2 tablet (two) times a day if needed for muscle spasms for up to 10 days. cyclobenzap 2021-0 Yes [id number] 10mg Q.5D Take 1 UT rine 8-10 [id number] tablet (10 Health (Flexeril) 00:00: mg total) 10 MG 00 by mouth 2 tablet (two) times a day if needed for muscle spasms for up to 10 days. cyclobenzap 2021-0 2022- No [id number] 10mg Q.5D Take 1 UT rine 8-10 08-21 [id number] tablet (10 Health (Flexeril) 00:00: 04:59 mg total) 10 MG 00 :00 by mouth 2 tablet (two) times a day if needed for muscle spasms for up to 10 days. No known No No known UT medications 2-08 medication He alth 09:52: s 05 No known No No known [facility] medications 1-10 medication He alth 09:19: s 40 Misc 2019-02 No 600 mL, Memoria Medication 0-01 Soln-IV, l 15:17: IV, Once, first dose 11/15/19 10:17:00 CDT, stop date 11/15/19 10:17:00 CDT fentaNYL 2019-02 No 50 mcg = 1 Mem oria 0-01 mL, l 14:43: Injection, IV, Once, first dose 11/15/19 9:43:00 CDT, stop date 11/15/19 9:43:00 CDT fentaNYL 2019-02 No 50 mcg = 1 Mem oria 0-01 mL, l 14:28: Injection, IV, Once, first dose 11/15/19 9:28:00 CDT, stop date 11/15/19 9:28:00 CDT Misc 2019-02 No 1,000 mL, Memoria Medication 0-01 Soln-IV, l 13:45: IV, Once, first dose 11/15/19 8:45:00 CDT, stop date 11/15/19 8:45:00 CDT fentaNYL 2019-02 No 50 mcg = 1 Mem oria 0-01 mL, l 13:18: Injection, IV, Once, first dose 11/15/19 8:18:00 CDT, [...] ia 0-01 0.5 mL, l 13:04: Injection, Nguyễn 00 IV Push, q10min PRN for pain severe (7-10), first dose 11/15/19 8:04:00 CDT Demerol HCl 2019-02 No 12.5 mg = M emoria 0-01 0.5 mL, l 13:04: Injection, [place] 00 IV Push, Once PRN for shivers, first dose 11/15/19 8:04:00 CDT Levalbutero 2019-02 No 0.63 mg = M emoria l 0.21 0-01 3 mL, l MG/ML 13:04: Soln, NEB, Mahendra n Inhalant 00 Once PRN Solution [...] e 0-01 0.5 mL, l 13:04: Injection, [place] 00 IM, Once PRN for vomiting, first dose 11/15/19 8:04:00 CDT Labetalol 2019-02 No 5 mg = 1 Merlin will 0-01 mL, l 13:04: Injection, [place] 00 IV Push, As Indicated PRN for [...] mine 0-01 0.5 mL, l 13:04: Injection, IV Push, Once PRN for itching, first dose 11/15/19 8:04:00 CDT ondansetron 2019-02 No 4 mg = 2 Me moria 0-01 mL, l 13:01: Injection, IV, Once, [...] Mem oria 0-01 Soln-IV, l 13:00: IV Piggyback, Once, first dose 11/15/19 8:00:00 CDT, stop date 11/15/19 8:00:00 CDT lidocaine 2019-02 No 60 mg = 3 Mem oria 0-01 mL, l 12:44: Injection, IV, Once, first dose 11/15/19 7:44:00 CDT, stop date 11/15/19 7:44:00 CDT propofol 2019-02 No 150 mg = Memor ia 0-01 15 mL, l 12:44: Emulsion, IV, Once, first dose 11/15/19 7:44:00 CDT, stop date 11/15/19 7:44:00 CDT midazolam 2019-02 No 1 mg = 1 Merlin will 0-01 mL, l 12:42: Injection, IV, Once, first dose 11/15/19 7:42:00 CDT, stop date 11/15/19 7:42:00 CDT fentaNYL 2019-02 No 50 mcg = 1 Mem oria 0-01 mL, l 12:42: Injection, [place] 00 IV, Once, first dose 11/15/19 7:42:00 CDT, stop date 11/15/19 7:42:00 CDT midazolam 2019-02 No 1 mg = 1 Merlin will 0-01 mL, l 12:22: Injection, [place] 00 IV, Once, first dose 11/15/19 7:22:00 CDT, stop date 11/15/19 7:22:00 CDT fentaNYL 2019-02 No 50 mcg = 1 Mem oria 0-01 mL, l 12:22: Injection, [place] 00 IV, Once, first dose 11/15/19 7:22:00 CDT, stop date 11/15/19 7:22:00 CDT Clindamycin 2019-02 No 900 mg, Mem oria 0-01 Soln-IV, l 12:00: IV [place] Piggyback, Once, infuse over 30 minutes, first dose 11/15/19 7:00:00 CDT, stop date 11/15/19 7:00:00 CDT, Prophylaxi s LR 1,000 mL 2019-02 No 1,000 mL, M emoria 0-01 IV, 30 l 11:18: mL/hr, start date 11/15/19 6:18:00 CDT, 2.3, m2 Lidocaine 2019-02 No 0.2 mL, Memor ia 2% 0.2 mL 001 Injection, l IV Start 11:18: Subcutaneo Her chacon [[facility]] 00 us, Once PRN for other (see comment), first dose 11/15/19 6:18:00 CDT ergocalcife Yes 50,000 Merlin will rol 50,000 9-28 IntUnit = l intl units 14:45: 1 caps, Herm fatou (1.25 mg) 00 Oral, oral qWeek, 0 capsule Refill(s), supplement cyclobenzap cyclobenzap No cyclobenza [place] rine 10 mg rine 10 mg daniella 10 Communi tablet TAKE tablet TAKE mg tablet ty 1 TABLET BY 1 TABLET BY TAKE 1 Hospita MOUTH 2 MOUTH 2 TABLET BY l TIMES A DAY TIMES A DAY MOUTH 2 Clinics IF NEEDED IF NEEDED TIMES A FOR MUSCLE FOR MUSCLE DAY IF SPASMS FOR SPASMS FOR NEEDED FOR UP TO 10 UP TO 10 MUSCLE DAYS. DAYS. SPASMS FOR UP TO 10 DAYS. metformin metformin No metformin [place] 500 mg 500 mg 500 mg Communi tablet Take tablet Take tablet ty 1 tablet 1 tablet Take 1 Hospi ta twice a day twice a day tablet l by oral by oral twice a Clinic s route for route for day by 30 days. 30 days. oral route for 30 days. pantoprazol pantoprazol No pantoprazo [place] e 40 mg e 40 mg le 40 mg Commu ni tablet,ana tablet,ana tablet,del ty yed release yed release ayed H ospita TAKE 1 TAKE 1 release l TABLET BY TABLET BY TAKE 1 Cli nics MOUTH TWICE MOUTH TWICE TABLET BY DAILY DAILY MOUTH DIRECTED DIRECTED TWICE DAILY DIRECTED phentermine phentermine No 1 Q1D phentermin [place] 37.5 mg 37.5 mg e 37.5 mg Comm uni tablet Take tablet Take tablet ty 1 tablet 1 tablet Take 1 Hospi ta every day every day tablet l by oral by oral every day Clin ics route for route for by oral 30 days. 30 days. route for 30 days. sertraline sertraline No sertraline [place] 50 mg 50 mg 50 mg Communi tablet Take tablet Take tablet ty 1 tablet 1 tablet Take 1 Hospi ta every day every day tablet l by oral by oral every day Clin ics route. route. by oral route. sumatriptan sumatriptan No sumatripta [place] 100 mg 100 mg n 100 mg Communi tablet TAKE tablet TAKE tablet ty 1 AT THE 1 AT THE TAKE 1 AT [facility] FIRST SIGN FIRST SIGN THE FIRST l OF A OF A SIGN OF A Clinics MIGRAINE MIGRAINE MIGRAINE AND REPEAT AND REPEAT AND REPEAT ONE TIME IN ONE TIME IN ONE TIME 2 HOURS IF 2 HOURS IF IN 2 HOURS NEEDED NEEDED IF NEEDED cholecalcif cholecalcif No 1capsul Q1W cholecalci [place] ida ida e(s) ferol Communi (vitamin (vitamin (vitamin ty D3) 1,250 D3) 1,250 D3) 1,250 Hospita mcg (50,000 mcg (50,000 mcg l unit) unit) (50,000 Clinics capsule capsule unit) Take 1 Take 1 capsule capsule capsule Take 1 every week every week capsule by oral by oral every week route for route for by oral 84 days. 84 days. route for 84 days. cyclobenzap cyclobenzap No cyclobenza [place] rine 10 mg rine 10 mg daniella 10 Communi tablet TAKE tablet TAKE mg tablet ty 1 TABLET BY 1 TABLET BY TAKE 1 Hospita MOUTH 2 MOUTH 2 TABLET BY l TIMES A DAY TIMES A DAY MOUTH 2 Clinics IF NEEDED IF NEEDED TIMES A FOR MUSCLE FOR MUSCLE DAY IF SPASMS FOR SPASMS FOR NEEDED FOR UP TO 10 UP TO 10 MUSCLE DAYS. DAYS. SPASMS FOR UP TO 10 DAYS. metformin metformin No metformin [place] 500 mg 500 mg 500 mg Communi tablet Take tablet Take tablet ty 1 tablet 1 tablet Take 1 Hospi ta twice a day twice a day tablet l by oral by oral twice a Clinic s route for route for day by 30 days. 30 days. oral route for 30 days. pantoprazol pantoprazol No pantoprazo [place] e 40 mg e 40 mg le 40 mg Commu ni tablet,ana tablet,ana tablet,del ty yed release yed release ayed H ospita TAKE 1 TAKE 1 release l TABLET BY TABLET BY TAKE 1 Cli nics MOUTH TWICE MOUTH TWICE TABLET BY DAILY DAILY MOUTH DIRECTED DIRECTED TWICE DAILY DIRECTED phentermine phentermine No 1 Q1D phentermin [place] 37.5 mg 37.5 mg e 37.5 mg Comm uni tablet Take tablet Take tablet ty 1 tablet 1 tablet Take 1 Hospi ta every day every day tablet l by oral by oral every day Clin ics route for route for by oral 30 days. 30 days. route for 30 days. sertraline sertraline No sertraline [place] 50 mg 50 mg 50 mg Communi tablet Take tablet Take tablet ty 1 tablet 1 tablet Take 1 Hospi ta every day every day tablet l by oral by oral every day Clin ics route. route. by oral route. sumatriptan sumatriptan No sumatripta [place] 100 mg 100 mg n 100 mg Communi tablet TAKE tablet TAKE tablet ty 1 AT THE 1 AT THE TAKE 1 AT [facility] FIRST SIGN FIRST SIGN THE FIRST l OF A OF A SIGN OF A Clinics MIGRAINE MIGRAINE MIGRAINE AND REPEAT AND REPEAT AND REPEAT ONE TIME IN ONE TIME IN ONE TIME 2 HOURS IF 2 HOURS IF IN 2 HOURS NEEDED NEEDED IF NEEDED cholecalcif cholecalcif No 1capsul Q1W cholecalci [place] ida ida e(s) ferol Communi (vitamin (vitamin (vitamin ty D3) 1,250 D3) 1,250 D3) 1,250 Hospita mcg (50,000 mcg (50,000 mcg l unit) unit) (50,000 Clinics capsule capsule unit) Take 1 Take 1 capsule capsule capsule Take 1 every week every week capsule by oral by oral every week route for route for by oral 84 days. 84 days. route for 84 days. compounded compounded No compounded [place] medication medication medication Communi Semaglutide Semaglutide Semaglutid ty /B12 0.3 ml /B12 0.3 ml e/B12 0.3 Hospita SQ, QW, SQ, QW, ml SQ, QW, l start 0.15 start 0.15 start 0.15 Clinics ml and ml and ml and increase as increase as increase tolerated. tolerated. as tolerated. cyclobenzap cyclobenzap No cyclobenza [place] rine 10 mg rine 10 mg daniella 10 Communi tablet TAKE tablet TAKE mg tablet ty 1 TABLET BY 1 TABLET BY TAKE 1 Hospita MOUTH 2 MOUTH 2 TABLET BY l TIMES A DAY TIMES A DAY MOUTH 2 Clinics IF NEEDED IF NEEDED TIMES A FOR MUSCLE FOR MUSCLE DAY IF SPASMS FOR SPASMS FOR NEEDED FOR UP TO 10 UP TO 10 MUSCLE DAYS. DAYS. SPASMS FOR UP TO 10 DAYS. azithromyci azithromyci No azithromyc [place] 250 mg n 250 mg in 250 mg da tablet TAKE tablet TAKE tablet [facility] TWO (2) TWO (2) TAKE TWO al TABLETS TABLETS (2) Health (500 MG) BY (500 MG) BY TABLETS [facility] ORAL ROUTE ORAL ROUTE (500 MG) h ONCE DAILY ONCE DAILY BY ORAL Program FOR 1 DAY, FOR 1 DAY, ROUTE ONCE THEN 1 THEN 1 DAILY FOR TABLET (250 TABLET (250 1 DAY, MG) ONCE MG) ONCE THEN 1 DAILY FOR 4 DAILY FOR 4 TABLET DAYS. DAYS. (250 MG) ONCE DAILY FOR 4 DAYS. metformin metformin No metformin [place] 500 mg 500 mg 500 mg Communi tablet Take tablet Take tablet ty 1 tablet 1 tablet Take 1 Hospi ta twice a day twice a day tablet l by oral by oral twice a Clinic s route for route for day by 30 days. 30 days. oral route for 30 days. ondansetron ondansetron No 1 Q7H ondansetro [place] 4 mg 4 mg n 4 mg Communi disintegrat disintegrat disintegra ty ing tablet ing tablet ting Hos matt Place 1 Place 1 tablet l tablet tablet Place 1 Clinics every 6-8 every 6-8 tablet hours by hours by every 6-8 translingua translingua hours by l route as l route as translingu needed for needed for al route 5 days. 5 days. as needed for 5 days. pantoprazol pantoprazol No pantoprazo [place] e 40 mg e 40 mg le 40 mg Commu ni tablet,ana tablet,ana tablet,del ty yed release yed release ayed H ospita TAKE 1 TAKE 1 release l TABLET BY TABLET BY TAKE 1 Cli nics MOUTH TWICE MOUTH TWICE TABLET BY DAILY DAILY MOUTH DIRECTED DIRECTED TWICE DAILY DIRECTED phentermine phentermine No 1 Q1D phentermin [place] 37.5 mg 37.5 mg e 37.5 mg Comm uni tablet Take tablet Take tablet ty 1 tablet 1 tablet Take 1 Hospi ta every day every day tablet l by oral by oral every day Clin ics route for route for by oral 30 days. 30 days. route for 30 days. sertraline sertraline No sertraline [place] 50 mg 50 mg 50 mg Communi tablet Take tablet Take tablet ty 1 tablet 1 tablet Take 1 Hospi ta every day every day tablet l by oral by oral every day Clin ics route. route. by oral route. sumatriptan sumatriptan No sumatripta [place] 100 mg 100 mg n 100 mg Communi tablet TAKE tablet TAKE tablet ty 1 AT THE 1 AT THE TAKE 1 AT [facility] FIRST SIGN FIRST SIGN THE FIRST l OF A OF A SIGN OF A Clinics MIGRAINE MIGRAINE MIGRAINE AND REPEAT AND REPEAT AND REPEAT ONE TIME IN ONE TIME IN ONE TIME 2 HOURS IF 2 HOURS IF IN 2 HOURS NEEDED NEEDED IF NEEDED ergocalcife ergocalcife No ergocalcif [place] (vitamin (vitamin (vitamin Epi scop D2) 1,250 D2) 1,250 D2) 1,250 al mcg (50,000 mcg (50,000 mcg H ealth unit) unit) (50,000 [facility] capsule capsule unit) h TAKE ONE TAKE ONE capsule Prog adan (1) (1) TAKE ONE CAPSULE(S) CAPSULE(S) (1) BY MOUTH BY MOUTH CAPSULE(S) EVERY WEEK. EVERY WEEK. BY MOUTH EVERY WEEK. Zithromax Zithromax No Zithromax [place] Z-Marvin 250 Z-Marvin 250 Z-Marvin 250 Communi mg tablet mg tablet mg tablet ty TAKE 2 TAKE 2 TAKE 2 Hospita TABLETS TABLETS TABLETS l (500 MG) BY (500 MG) BY (500 MG) Clinics ORAL ROUTE ORAL ROUTE BY ORAL ONCE DAILY ONCE DAILY ROUTE ONCE FOR 1 DAY FOR 1 DAY DAILY FOR THEN 1 THEN 1 1 DAY THEN TABLET (250 TABLET (250 1 TABLET MG) BY ORAL MG) BY ORAL (250 MG) ROUTE ONCE ROUTE ONCE BY ORAL DAILY FOR 4 DAILY FOR 4 ROUTE ONCE DAYS DAYS DAILY FOR 4 DAYS bupropion bupropion No 1 Q1D bupropion [place] HCl 150 mg HCl 150 mg HCl 150 mg Communi tablet,12 tablet,12 tablet,12 ty hr hr hr Hospita sustained-r sustained-r sustained- l elease(smok elease(smok release( Clinics ing ing abiolaing deterrent) deterrent) deterrent) Take 1 Take 1 Take 1 tablet tablet tablet every day every day every day by oral by oral by oral route. route. route. cyclobenzap cyclobenzap No cyclobenza [place] rine 10 mg rine 10 mg daniella 10 Communi tablet TAKE tablet TAKE mg tablet ty 1 TABLET BY 1 TABLET BY TAKE 1 Hospita MOUTH 2 MOUTH 2 TABLET BY l TIMES A DAY TIMES A DAY MOUTH 2 Clinics IF NEEDED IF NEEDED TIMES A FOR MUSCLE FOR MUSCLE DAY IF SPASMS FOR SPASMS FOR NEEDED FOR UP TO 10 UP TO 10 MUSCLE DAYS. DAYS. SPASMS FOR UP TO 10 DAYS. Deconex IR Deconex IR No Deconex IR [place] 10 mg-385 10 mg-385 10 mg-385 Communi mg tablet mg tablet mg tablet ty TAKE 1 TAKE 1 TAKE 1 Hospita TABLET BY TABLET BY TABLET BY l MOUTH EVERY MOUTH EVERY MOUTH Clinics 6 HOURS 6 HOURS EVERY 6 NEEDED FOR NEEDED FOR HOURS CONGESTION CONGESTION NEEDED FOR CONGESTION meclizine meclizine No 1 TID meclizine [place] 25 mg 25 mg 25 mg Communi tablet Take tablet Take tablet ty 1 tablet 3 1 tablet 3 Take 1 H ospita times a day times a day tablet 3 l by oral by oral times a Clinic s route as route as day by needed. needed. oral route as needed. hydrocodone hydrocodone No hydrocodon [place] 7.5 7.5 e 7.5 da mg-acetamin mg-acetamin mg-acetami [facility] ophen 325 ophen 325 nophen 325 al mg tablet mg tablet mg tablet Health TAKE ONE TAKE ONE TAKE ONE [facility] (1) (1) (1) h TABLET(S) TABLET(S) TABLET(S) Program BY MOUTH BY MOUTH BY MOUTH EVERY FOUR EVERY FOUR EVERY FOUR HOURS HOURS HOURS NEEDED FOR NEEDED FOR NEEDED FOR PAIN. PAIN. PAIN. pantoprazol pantoprazol No pantoprazo [place] e 40 mg e 40 mg le 40 mg Commu ni tablet,ana tablet,ana tablet,del ty yed release yed release ayed H ospita Take 1 Take 1 release l tablet tablet Take 1 Clinics twice a day twice a day tablet by oral by oral twice a route as route as day by directed directed oral route for 30 for 30 as days. days. directed for 30 days. risperidone risperidone No 1 Q1D risperidon [place] 3 mg tablet 3 mg tablet e 3 mg Communi Take 1 Take 1 tablet ty tablet tablet Take 1 Hospita every day every day tablet l by oral by oral every day Clin ics route at route at by oral bedtime. bedtime. route at bedtime. sumatriptan sumatriptan No sumatripta [place] 100 mg 100 mg n 100 mg Communi tablet take tablet take tablet ty 1 at the 1 at the take 1 at [facility] first sign first sign the first l of a of a sign of a Clinics migraine migraine migraine and repeat and repeat and repeat one time in one time in one time 2 hours if 2 hours if in 2 hours needed needed if needed cyclobenzap cyclobenzap No cyclobenza [place] rine 10 mg rine 10 mg daniella 10 Communi tablet TAKE tablet TAKE mg tablet ty 1 TABLET BY 1 TABLET BY TAKE 1 Hospita MOUTH 2 MOUTH 2 TABLET BY l TIMES A DAY TIMES A DAY MOUTH 2 Clinics IF NEEDED IF NEEDED TIMES A FOR MUSCLE FOR MUSCLE DAY IF SPASMS FOR SPASMS FOR NEEDED FOR UP TO 10 UP TO 10 MUSCLE DAYS. DAYS. SPASMS FOR UP TO 10 DAYS. Deconex IR Deconex IR No Deconex IR [place] 10 mg-385 10 mg-385 10 mg-385 Communi mg tablet mg tablet mg tablet ty TAKE 1 TAKE 1 TAKE 1 Hospita TABLET BY TABLET BY TABLET BY l MOUTH EVERY MOUTH EVERY MOUTH Clinics 6 HOURS 6 HOURS EVERY 6 NEEDED FOR NEEDED FOR HOURS CONGESTION CONGESTION NEEDED FOR CONGESTION ergocalcife ergocalcife No ergocalcif [place] ashley prieto Jannaroxanne (vitamin (vitamin (vitamin ty D2) 1,250 D2) 1,250 D2) 1,250 Hospita mcg (50,000 mcg (50,000 mcg l unit) unit) (50,000 Clinics capsule capsule unit) TAKE 1 TAKE 1 capsule CAPSULE CAPSULE TAKE 1 EVERY WEEK EVERY WEEK CAPSULE BY ORAL BY ORAL EVERY WEEK ROUTE. ROUTE. BY ORAL ROUTE. meclizine meclizine No 1 TID meclizine [place] 25 mg 25 mg 25 mg Communi tablet Take tablet Take tablet ty 1 tablet 3 1 tablet 3 Take 1 H ospita times a day times a day tablet 3 l by oral by oral times a Clinic s route as route as day by needed. needed. oral route as needed. Ozempic Ozempic No .25mg Q1W Ozempic [place] 0.25 mg or 0.25 mg or 0.25 mg or Communi 0.5 mg (2 0.5 mg (2 0.5 mg (2 ty mg/1.5 mL) mg/1.5 mL) mg/1.5 mL) Hospita subcutaneou subcutaneou subcutaneo l s pen s pen us pen [facility] injector injector injector Inject 0.25 Inject 0.25 Inject mg every mg every 0.25 mg week by week by every week subcutaneou subcutaneou by s route for s route for subcutaneo 28 days. 28 days. us route for 28 days. pantoprazol pantoprazol No 1 BID pantoprazo [place] e 40 mg e 40 mg le 40 mg Commu ni tablet,ana tablet,ana tablet,del ty yed release yed release ayed H ospita Take 1 Take 1 release l tablet tablet Take 1 Clinics twice a day twice a day tablet by oral by oral twice a route as route as day by directed directed oral route for 30 for 30 as days. days. directed for 30 days. pantoprazol pantoprazol No pantoprazo [place] 40 mg e 40 mg le 40 mg da tablet,ana tablet,ana tablet,del [facility] release yed release ayed a l TAKE 1 TAKE 1 release Health TABLET BY TABLET BY TAKE 1 Out reac MOUTH ONCE MOUTH ONCE TABLET BY h DAILY DAILY MOUTH ONCE Program DAILY risperidone risperidone No 1 Q1D risperidon [place] 3 mg tablet 3 mg tablet e 3 mg Communi Take 1 Take 1 tablet ty tablet tablet Take 1 Hospita every day every day tablet l by oral by oral every day Clin ics route at route at by oral bedtime. bedtime. route at bedtime. sumatriptan sumatriptan No sumatripta [place] 100 mg 100 mg n 100 mg Communi tablet TAKE tablet TAKE tablet ty 1 AT THE 1 AT THE TAKE 1 AT [facility] FIRST SIGN FIRST SIGN THE FIRST l OF A OF A SIGN OF A Clinics MIGRAINE MIGRAINE MIGRAINE AND REPEAT AND REPEAT AND REPEAT ONE TIME IN ONE TIME IN ONE TIME 2 HOURS IF 2 HOURS IF IN 2 HOURS NEEDED NEEDED IF NEEDED cyclobenzap cyclobenzap No cyclobenza [place] rine 10 mg rine 10 mg daniella 10 Communi tablet TAKE tablet TAKE mg tablet ty 1 TABLET BY 1 TABLET BY TAKE 1 Hospita MOUTH 2 MOUTH 2 TABLET BY l TIMES A DAY TIMES A DAY MOUTH 2 Clinics IF NEEDED IF NEEDED TIMES A FOR MUSCLE FOR MUSCLE DAY IF SPASMS FOR SPASMS FOR NEEDED FOR UP TO 10 UP TO 10 MUSCLE DAYS. DAYS. SPASMS FOR UP TO 10 DAYS. Deconex IR Deconex IR No Deconex IR [place] 10 mg-385 10 mg-385 10 mg-385 Communi mg tablet mg tablet mg tablet ty TAKE 1 TAKE 1 TAKE 1 Hospita TABLET BY TABLET BY TABLET BY l MOUTH EVERY MOUTH EVERY MOUTH Clinics 6 HOURS 6 HOURS EVERY 6 NEEDED FOR NEEDED FOR HOURS CONGESTION CONGESTION NEEDED FOR CONGESTION ergocalcife ergocalcife No ergocalcif [place] ashley Rothman (vitamin (vitamin (vitamin ty D2) 1,250 D2) 1,250 D2) 1,250 Hospita mcg (50,000 mcg (50,000 mcg l unit) unit) (50,000 Clinics capsule capsule unit) TAKE 1 TAKE 1 capsule CAPSULE CAPSULE TAKE 1 EVERY WEEK EVERY WEEK CAPSULE BY ORAL BY ORAL EVERY WEEK ROUTE. ROUTE. BY ORAL ROUTE. meclizine meclizine No 1 TID meclizine [place] 25 mg 25 mg 25 mg Communi tablet Take tablet Take tablet ty 1 tablet 3 1 tablet 3 Take 1 H ospita times a day times a day tablet 3 l by oral by oral times a Clinic s route as route as day by needed. needed. oral route as needed. metformin metformin No metformin [place] 500 mg 500 mg 500 mg Communi tablet Take tablet Take tablet ty 1 tablet 1 tablet Take 1 Hospi ta twice a day twice a day tablet l by oral by oral twice a Clinic s route for route for day by 30 days. 30 days. oral route for 30 days. pantoprazol pantoprazol No pantoprazo [place] e 40 mg e 40 mg le 40 mg Commu ni tablet,ana tablet,ana tablet,del ty yed release yed release ayed H ospita TAKE 1 TAKE 1 release l TABLET BY TABLET BY TAKE 1 Cli nics MOUTH TWICE MOUTH TWICE TABLET BY DAILY DAILY MOUTH DIRECTED DIRECTED TWICE DAILY DIRECTED promethazin promethazin No promethazi [place] e-DM 6.25 e-DM 6.25 ne-DM 6.25 Communi mg-15 mg/5 mg-15 mg/5 mg-15 mg/5 ty mL oral mL oral mL oral Hospit a syrup TAKE syrup TAKE syrup TAKE l 5 ML BY 5 ML BY 5 ML BY Clinic s MOUTH EVERY MOUTH EVERY MOUTH 6 HOURS 6 HOURS EVERY 6 NEEDED FOR NEEDED FOR HOURS COUGH COUGH NEEDED FOR COUGH risperidone risperidone No 1 Q1D risperidon [place] 3 mg tablet 3 mg tablet e 3 mg Communi Take 1 Take 1 tablet ty tablet tablet Take 1 Hospita every day every day tablet l by oral by oral every day Clin ics route at route at by oral bedtime. bedtime. route at bedtime. sertraline sertraline No 1 Q1D sertraline [place] 50 mg 50 mg 50 mg Communi tablet Take tablet Take tablet ty 1 tablet 1 tablet Take 1 Hospi ta every day every day tablet l by oral by oral every day Clin ics route. route. by oral route. sumatriptan sumatriptan No sumatripta [place] 100 mg 100 mg n 100 mg Communi tablet TAKE tablet TAKE tablet ty 1 AT THE 1 AT THE TAKE 1 AT spita FIRST SIGN FIRST SIGN THE FIRST l OF A OF A SIGN OF A Clinics MIGRAINE MIGRAINE MIGRAINE AND REPEAT AND REPEAT AND REPEAT ONE TIME IN ONE TIME IN ONE TIME 2 HOURS IF 2 HOURS IF IN 2 HOURS NEEDED NEEDED IF NEEDED cholecalcif cholecalcif No 1capsul Q1W cholecalci N[place] prieto e(s) ferol Communi (vitamin (vitamin (vitamin ty D3) 1,250 D3) 1,250 D3) 1,250 Hospita mcg (50,000 mcg (50,000 mcg l unit) unit) (50,000 Clinics capsule capsule unit) Take 1 Take 1 capsule capsule capsule Take 1 every week every week capsule by oral by oral every week route for route for by oral 84 days. 84 days. route for 84 days. Vital Signs Vital Name Observation Time Observation Value Comments Source Body height 2022-09-21 158.8 cm [facility] 14:19:00 Body weight 2022-09-21 138.574 kg Per last clinic [facility] 14:19:00 visit. BMI 2022-09-21 54.99 kg/m2 [facility] 14:19:00 Body height 2022-09-20 158.8 cm [facility] 13:46:00 Body weight 2022-09-20 138.574 kg [facility] 13:46:00 BMI 2022-09-20 54.99 kg/m2 [facility] 13:46:00 Respiratory rate 2022-08-26 16 /min [facility] 15:09:00 Body height 2022-08-26 162.6 cm [facility] 15:09:00 Body weight 2022-08-26 138.982 kg [facility] 15:09:00 BMI 2022-08-26 52.59 kg/m2 [facility] 15:09:00 Oxygen saturation 2022-08-26 97 /min [facility] in Arterial blood 15:09:00 by Pulse oximetry Systolic blood 2022-08-26 116 mm[Hg] [facility] pressure 15:09:00 Diastolic blood 2022-08-26 83 mm[Hg] [facility] pressure 15:09:00 Heart rate 2022-08-26 86 /min [facility] 15:09:00 Body temperature 2022-08-26 37.11 Smita [facility] 15:09:00 BP Diastolic 2022-04-14 81 mm[Hg] [facility] 00:00:00 Hospital [facility] Height 2022-04-14 63 [in_i] [place] [facility] 00:00:00 [facility] Clinic [facility] BMI (Body Mass 2022-04-14 54.9 kg/m2 [place] Commun ity Index) 00:00:00 Hospital Clinic s BP Systolic 2022-04-14 132 mm[Hg] [place] [facility] 00:00:00 [facility] Body Weight 2022-04-14 4960 [oz_av] [place] [facility] 00:00:00 [facility] BP Diastolic 2022-04-05 70 mm[Hg] [place] [facility] 00:00:00 Hospital Clinic s Height 2022-04-05 63 [in_i] [place] [facility] 00:00:00 Hospital Clinic [facility] BMI (Body Mass 2022-04-05 55.7 kg/m2 [place] Commun ity Index) 00:00:00 Hospital Clinic s BP Systolic 2022-04-05 110 mm[Hg] [place] [facility] 00:00:00 [facility] Body Weight 2022-04-05 5033.6 [oz_av] [place] [facility] 00:00:00 Hospital Clinic s BP Diastolic 2022-03-17 54 mm[Hg] [place] [facility] 00:00:00 Hospital Clinic [facility] Height 2022-03-17 63 [in_i] [place] [facility] 00:00:00 Hospital Clinic s BMI (Body Mass 2022-03-17 56 kg/m2 [place] Commun ity Index) 00:00:00 Hospital Clinic s BP Systolic 2022-03-17 105 mm[Hg] [place] [facility] 00:00:00 [facility] Clinic [facility] Body Weight 2022-03-17 5061 [oz_av] [place] [facility] 00:00:00 [facility] Clinic [facility] BP Diastolic 2022-03-08 74 mm[Hg] [place] [facility] 00:00:00 Hospital Clinic [facility] BP Systolic 2022-03-08 120 mm[Hg] [place] [facility] 00:00:00 Hospital Clinic [facility] Body Weight 2022-03-08 5100.8 [oz_av] [place] [facility] 00:00:00 Hospital Clinic [facility] BP Diastolic 2022-01-20 80 mm[Hg] [place] [facility] 00:00:00 [facility] Clinic [facility] BP Systolic 2022-01-20 150 mm[Hg] [place] [facility] 00:00:00 Hospital Clinic [facility] Body Weight 2022-01-20 5129.6 [oz_av] [place] [facility] 00:00:00 Hospital Clinic s BP Diastolic 2022-01-13 75 mm[Hg] [place] [facility] 00:00:00 Hospital Clinic [facility] BP Systolic 2022-01-13 110 mm[Hg] [place] [facility] 00:00:00 Hospital Clinic s Body Weight 2022-01-13 5056 [oz_av] [place] [facility] 00:00:00 Hospital Clinic [facility] Body height 2021-03-24 160 cm [facility] 15:51:00 Body weight 2021-03-24 136.079 kg [facility] 15:51:00 BMI 2021-03-24 53.14 kg/m2 [facility] 15:51:00 Respitory [facility]15 [facility] 16[facility]44[facility]00 Heart Rate 2019-11-15 [facility] 16:[facility] Respitory Rate 2019-11-15 [facility] 16:00:00 Systolic (mm Hg) 2019-11-15 [facility] 16:00:00 Diastolic (mm Hg) 2019-11-15 [facility] 16:00:00 Heart Rate 2019-11-15 [facility] 15:50:00 Respitory Rate 2019-11-15 [facility] 15:50:00 Systolic (mm Hg) 2019-11-15 [facility] 15:50:00 Diastolic (mm Hg) 2019-11-15 [facility] 15:50:00 Heart Rate 2019-11-15 [facility] 15:40:00 Systolic (mm Hg) 2019-11-15 [facility] 15:40:00 Diastolic (mm Hg) 2019-11-15 [facility] 15:40:00 Temperature Oral 2019-11-15 36.8 [facility] 15:10:00 Temperature Oral 2019-11-15 37 Smita [facility] (F) 11:23:00 Height 2019-11-15 160 cm [facility] 11:23:00 Height 2019-11-12 160 cm [facility] 14:43:00 Systolic blood 2019-10-18 153 mm[Hg] [facility] pressure 15:09:00 Diastolic blood 2019-10-18 101 mm[Hg] [facility] pressure 15:09:00 Body height 2019-10-18 63 [in_us] [facility] 15:09:00 Weight 2019-10-18 300 [lb_av] [facility] 15:09:00 Body mass index 2019-10-18 53.14 kg/m2 [facility] (BMI) [Ratio] 15:09:00 Heart Rate 2019-10-18 101 /min [facility] 15:09:00 Procedures Procedure Date / Time Performing Clinician Source Performed MR Ankle wo contrast [id number] 2020-05-06 00:00:00 [facility] Post Op Promis 29 Survey 2019-12-05 00:00:00 [facility] APPLICATION SHORT LEG 2019-11-15 13:19:00 Willy Hernandez SPLINT-CALF TO FOOT [id number] (Right)<sup>1</sup> ARTHROSCOPY ANKLE 2019-11-15 13:19:00 [facility] trista W/EXTENSIVE DEBRIBEMENT [id number] (Right)<sup>2</sup> COLLATERAL LIGAMENT 2019-11-15 13:19:00 [facility] PRIMARY REPAIR ANKLE [id number] (Right)<sup>3</sup> [UTP] Ortho - Surgery 2019-10-19 00:00:00 [facility] Sched[facility] [L] 2019 Novel Coronavirus 2019-10-19 00:00:00 [facility] (COVID-19), ARTURO 2014-02-14 06:00:[address] [facility] section<sup>4</sup> [facility] of [facility] of Gallbladder [facility]le [facility] Caesarean Section [facility] Cholecystectomy [facility] Plan of Care Planned Activity Planned Date Details Comments Source Diagnostic Test 2022-04-05 HbA1c (hemoglobin [facility] Pending 00:00:00 A1c), blood [code = Hospital [facility] HbA1c (hemoglobin A1c), blood] Diagnostic Test 2019-10-19 [[facility]] [facility] - [facility] 00:00:00 Surgery Scheduling [code = [UTP] Ortho - Surgery Scheduling] Diagnostic Test 2019-10-19 [L] 2019 Novel [facility] Pending 00:00:00 Coronavirus (COVID-19), ARTURO [code = 675886] Encounters Start End Encounter Admission Attending Care Care Encounter Source Date/Time Date/Time Type Type Clinicians Facility Department ID 2022-09-16 Outpatient [facility] [id number] [place] 08:55:18 [id number] [facility] 2022-09-09 Outpatient [facility] [id number] [place] 13:26:35 [id number] [facility] 2022-08-26 Outpatient [facility] [id number] [place] 11:19:46 [id number] [facility] 2022-08-16 [facility] [id number] [place] 13:00:00 [id number] 2022-08-16 Outpatient [facility] [id number] [place] 08:16:50 [id number] [facility] 2022-08-12 Outpatient [facility] [id number] [place] 11:31:34 [id number] [facility] 2022-08-10 Outpatient [facility] [id number] [place] 13:04:17 [id number] [facility] 2022-08-09 Outpatient [facility] [id number] [place] 08:13:17 [id number] [facility] 2022-03-16 Outpatient [facility] [id number] [place] 14:10:37 [id number] [facility] 2021-03-23 Outpatient JEANNA, [facility] [id number] [place] 12:24:18 [facility] 2021-03-23 Outpatient JEANNA, [facility] [id number] [place] 09:42:01 [facility] 2021-03-19 Outpatient JEANNA, [facility] [id number] [place] 13:46:50 [facility] 2021-02-23 Outpatient [facility] [id number] [place] 10:02:50 [facility] 2021-02-18 Outpatient JEANNA, [facility] [id number] [place] 10:45:22 [facility] 2022-11-22 2022-11-22 Outpatient COWLING, [facility] [id number] [place] 09:00:00 09:00:00 [facility] 2022-10-21 2022-10-21 Outpatient COWLING, [facility] [id number] [place] 11:00:00 11:00:00 [facility] 2022-09-21 2022-09-21 Nutrition Tanchico, [facility] [id number] [place] 09:15:00 09:43:17 [facility]anna [id number] [facility] [id number] [facility] [id number] 2022-09-20 2022-09-20 Nutrition [place], [facility] [id number] [place] 08:45:00 09:10:53 Joanna [facility] [id number] [place] [address] [id number] 2022-09-16 2022-09-16 Outpatient JACKY, [facility] [id number] [place] 09:15:00 09:15:00 [facility] 2022-09-14 2022-09-14 Outpatient DOLLY, [facility] [id number] [place] 09:45:00 09:45:00 [facility] 2022-08-26 2022-08-26 Office Jacky, [facility] [id number] [place] 10:30:00 11:11:13 Visit Nancy SE MED [id number] [place] [address] [id number] 2022-08-19 2022-08-19 Outpatient JACKY, [facility] [id number] [place] 10:30:00 10:30:00 [facility] 2022-08-10 2022-08-10 Outpatient [facility] [id number] [place] 00:00:00 14:01:29 [facility] 2022-08-10 2022-08-10 Office Jeanna, [facility] [id number] [place] 13:30:00 14:01:15 Visit Ericka SUGAR [id number] [place] [id number] 2022-06-11 2022-06-11 Outpatient KEFFER_A [facility] [id number] [place] 00:00:00 00:00:00 428 [facility] 2022-05-28 2022-05-28 Outpatient KEFFER_A [facility] [id number] [place] 00:00:00 00:00:00 414 [facility] 2022-04-14 2022-04-14 Outpatient JAK_Adore [facility] [id number] [place] 00:00:00 00:00:00 301 [facility] i ty [facility] Clinics 2022-04-14 2022-04-14 Mahamed [facility] [place] 00:00:00 00:00:00 Whitley Al MSN, 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 [facility], [facility] s [address], [facility] [address], Nessa Al [place] MSN, [employer]-C [id number] , Ph. 2022-04-05 2022-04-05 Outpatient JAK_Adore [facility] [id number] [place] 00:00:00 00:00:00 220 Commun i ty [facility] l Clinics 2022-04-05 2022-04-05 Zunilda Hunter [facility] [place] 00:00:00 00:00:00 Whitley Bhagat MD: [address] Hospital ty [facility] a [address], [facility] l [address], HOSPITAL Clinic s [place], [id number] JAK , Ph. 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 [facility], [facility] s [address], [facility] [address], Nessa Al [place] MSN, [employer]-C [id number] , Ph. 2022-03-08 2022-03-08 Outpatient JAK_Adore [facility] [id number] [place] 00:00:00 00:00:00 123 [facility] i ty [facility] Clinics 2022-03-08 2022-03-08 Outpatient KEFFER_A [facility] [id number] [place] 00:00:00 00:00:00 201 Commun i ty [facility] Clinics 2022-03-08 2022-03-08 Zunilda Hunter [facility] [place] 123 [place] 00:00:00 00:00:00 Whitley Bhagat MD: [address] [facility] [address] COMM[facility] l [address], H[facility] [place], [place] CL[place]IC, [address] JAK , Ph. 2022-01-20 2022-01-20 Outpatient ANATFFER_A [facility] [id number] [place] 00:00:00 00:00:00 207 Commun i ty [facility]osp[facility] l Clinics 2022-01-20 2022-01-20 Zunilda Hunter [facility] [place] 207 [place] 00:00:00 00:00:00 Whitley [facility]agat MD: [address] [facility] [address] COMM[facility] [address], [facility] [place], [place]IC, [address] JAK , Ph. 2022-01-14 2022-01-14 Outpatient ANATFFER_A [facility] [id number] [place] 00:00:00 00:00:00 201 Commun i ty [facility]osp[facility] Clinics 2022-01-13 2022-01-13 Outpatient KEFFER_A [facility] [id number] [place] 00:00:00 00:00:00 130 Commun i ty H[facility] l Clinics 2022-01-13 2022-01-13 Zunilda Hunter [facility] [place] 130 [place] 00:00:00 00:00:00 Whitley Bhagat MD: [address] [facility] Hospit a [address], COMMUNITY l [address], HOSP[facility] [place], [place] CL[place]IC, [address] JAK , Ph. 2021-10-07 2021-10-07 Office NIK Meeks [facility]THO [id number] [place] 15:30:00 16:00:30 Visit Ericka SUGAR [id number] [place] [id number] 2021-09-23 2021-09-23 Office Jeanna [facility] [id number] [place] 15:30:00 16:30:23 Visit Ericka SUGAR [id number] [place]th [place] [id number] 2021-03-24 2021-03-24 Office Jeanna [facility] ORTHO [id number] [place] 09:45:00 10:51:41 Visit Ericka SUGAR [id number] He alth [place] [id number] 2021-03-24 2021-03-24 Outpatient JEANNA, [facility] [id number] [place] 09:45:00 09:45:00 [facility] Health 2021-03-23 2021-03-23 Outpatient JEANNA, [facility] [id number] [place] 09:45:00 09:45:00 [facility] Health 2021-02-23 2021-02-23 Office Jeanna [facility] ORTHO [id number] [place] 09:15:00 10:36:33 Visit Ericka SUGAR [id number] He [place]th [place] [id number] 2020-10-06 2020-10-06 Outpatient LISTER_MELI [place] [id number] [place] 11:58:00 11:58:00 [facility] 2020-09-25 2020-09-25 Outpatient LISTER_MELI MEHOP [facility] [id number] [place] 01:09:00 01:09:00 [facility] 2020-09-24 2020-09-24 Outpatient LISTER_MELI MEHOP [facility] [id number] [place] 12:59:00 12:59:00 [facility] 2020-09-24 2020-09-24 Roberta MENCHACA [place] - [id number] [place] 00:00:00 00:00:00 Fatou Navarrete, [facility] 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 2020-05-14 2020-05-14 [facility] [id number] [place] 14:15:00 14:15:00 t; ERICKA MEEKS, - Sugar Phys ici ERICKA, DPM [place] 1 ans DPM 2020-05-06 2020-05-06 [facility] [id number] [place] 10:45:00 10:45:00 t; ERICKA MEEKS, - [place] Phys ici ERICKA, DPM [place] 2 ans DPM 2020-01-24 2020-01-24 [facility] [id number] [place] 14:15:00 14:15:00 t; ERICKA MEEKS, - [place] Phys ici ERICKA, DPM Land 2 ans DPM 2019-12-28 2019-12-28 [facility] [id number] [place] 10:15:00 10:15:00 t; ERICKA MEEKS, Phys ici ERICKA, DPM ans DPM 2019-12-27 2019-12-27 [facility] [id number] [place] 14:00:00 14:00:00 t; ERICKA MEEKS, - [place] Phys ici ERICKA, DPM [place] 2 ans DPM 2019-12-14 2019-12-14 [facility] [id number] [place] 10:15:00 10:15:00 t; ERICKA MEEKS, - [place] Phys ici ERICKA, DPM [place] 2 ans DPM 2019-11-26 2019-11-26 [facility] [id number] [place] 11:30:00 11:30:00 t; ERICKA MEEKS, - [place] Phys ici ERICKA, DPM [place] 2 ans DPM 2019-11-15 2019-11-15 Outpatient nullFlavo [facility] [id number] Memoria 10:51:58 17:15:00 r [facility] 2019-11-15 2019-11-15 Outpatient nullFlavo [facility] [id number] [place] 05:51:58 12:15:00 felicia Adrian 2019-11-15 2019-11-15 Outpatient Jeanna, [id number] 05:51:58 12:15:00 Ericka 8 2019-11-15 2019-11-15 [facility] [id number] [place] 07:30:00 07:30:00 t; ERICKA MEEKS, - [place] Phys ici ERICKA, DPM [place] 2 ans DPM 2019-10-18 2019-10-18 [facility]NA [facility] Orthopedics [id number] [place] 14:30:00 14:30:00 t; ERICKA MEEKS, - [employer] ici ERICKA, DPM Land 2 ans DPM 2019-07-12 2019-07-12 Outpatient [facility] [id number] [place] 01:19:00 01:19:00 [id number] [facility] Results Test Description Test Time Test Comments Results Result Comments Source PAP TEST, THINPREP, IMAGED 2021-10-15 13:01:11 Test Item Value Reference Range Interpretation Comme nts SOURCE: (test code = Cervical 8001) SLIDES: (test code = 1 8011) LMP: (test code = 8021) 08/14/2021 SPECIMEN ADEQUACY: (test (NOTE) Sa tisfactory for evaluation. code = 68222) Endocervical cells/transform ation zone component not i dentified. INTERPRETATION: (test NILM/NO EPITH. ---- code = 88161) ABNORMALITY;SEE BELOW ----- ------ NEGA TIVE FOR INTRAEPITHELIAL LESION OR MALIGNANCY (NIL M) --------- OTHER COMMENTS: (test (NOTE) The ab sence of endocervical code = 8081) cells is confir med by a seniorcytotechn ologist. PCB DESIGN ENGINEER: (test BALBINA code = 8101) KRISTEL TORRES(ASCP)IAC QC TECHNOLOGIST: (test Rupesh code = 8111) NIC Lowe(ASCP),IAC LOCATION: (test code = (NOTE) Speci mens processed and 44337) interpreted at [facility], [address] [place] [id number], , CLIA: [id number] CPT: (test code = 8140) (NOTE) 8817 5 UNLESS OTHERWISE INDICATED, COMP UTER AIDED AND CYTOTECHNOLOGIS T SCREENING PERFORMED. The Pap test is a screening test with an inherent, but low probabi lity of error. Your patient sh ould be reminded to consult you immediately if she experiences any suspicious signs or sympto ms, regardless of her Pap test re sult. An alternate repor t format containing imag es or consolidated pr ior Pap history is available as applicable. HPV HIGH RISK WITH GENOTYPE, [id number] 07:39:20 Test Item Value Reference Range Interpretation Comments HPV HIGH RISK INTERP NEGATIVE NEGATIVE (test code = 24463) HPV 16 (test code = NEGATIVE 57589) HPV 18 (test code = NEGATIVE 20510) HPV, HR, OTHER NEGATIVE Testing meth odology is GENOTYPES (test code real-ti me PCR utilizing = 78092) hydrolysis prob es with the [employer] 4800 system. The sara t individually de tects genotypes 16 an d 18, as well as the oth er 12 high risk types (31,33,35,39,45 ,51,52,56 ,58,59,66,68). The expected result is negative. A neg ative result does not rule out the presence of HPV not included in the genotype set, a low leve l of infection or sp ecimen sampling error. UNLESS OTHERWISE INDIC ATED, ALL TESTING PERFORM ED ATCLINICAL PATH [facility] LAB[facility]ATORIES, [place]. [address] [place] [address] LABORATORY DIRE CTOR: CODY LAMB M.D. CLIA NUMBER [id number] CAP ACCREDITATI ON NO. CT/NG, TMA, [id number] 07:06:10 Test Item Value Reference Range Interpretation Comments GONORRHEA, TMA NEGATIVE NEGATIVE Assay method ology is (test code = nucleic acid am plification 34445) by transcriptio n mediated amplification ( TMA) utilizing the A ptima Combo 2 Assay. CHLAMYDIA, TMA NEGATIVE NEGATIVE Assay method ology is (test code = nucleic acid am plification 05654) by transcriptio n mediated amplification ( TMA) utilizing the A ptima Combo 2 Assay. [id number] 06:54:50 Test Item Value Reference Range Interpretation Comments TESTOSTERONE (test 51 NG/DL See_Comment NOTE: TO SAIMA code = 2830) TESTOSTERONE SAY SENSITIVITY IS 12 NG/DL. TO DETE RMINE NORMAL VS. SUBN ORMAL TESTOSTERONE IN CHILDREN AND WO MEN, CONSIDER TESTIN G WITH ULTRASENSITIVE TESTOSTERONE. U NLESS OTHERWISE INDIC ATED, ALL TESTING PER FORMED ATCLINICAL PATH OGY LABORATORIES, [place]. [address] [place] [address] LABORATOR Y DIRECTOR: CODY WHELAN M.D. CLIA NUMBER [id number] CAP ACCREDITATION N O. [Autom ated message] The sy stem which generated this result transmit ruby reference range : <=55. The reference r alex was not used to int erpret this result as normal/abnormal . FSH + LH [id number] 04:49:44 Test Item Value Reference Range Interpretation Comments FOLLICLE STIM HORMONE 3.1 IU/L SEE BELOW EXPECTED VALUES (test code = 2700) FOR FSH F OR FEMALES >17 YEARS M ALES FEMALES >=18 YE ARS 1.5-12.4 IU/L F OLLICULAR 3.5-12.5 IU/L M ID-CYCLE PEAK 4.7-21.5 I U/L LUTEAL PHASE 1 .7-7.7 IU/L POSTMENOPA USAL 25.8-134.8 IU/L LUTEINIZING HORMONE 8.3 IU/L SEE BELOW EXPECTED VALUES (test code = 2776) FOR LH FO R FEMALES >17 YEARS M ALES FEMALES >=18 YE ARS 1.8-8.6 IU/L FO LLICULAR 2.4-12.6 IU/L M ID-CYCLE PEAK 14.0-95.6 IU/L LUTEAL PHASE 1. 0-11.4 IU/L POSTMENOPA USAL 7.7-58.5 IU/L TSH, THIRD [id number] 04:49:44 Test Item Value Reference Range Interpretation Comments TSH, THIRD GENERATION (test code 2.320 UIU/ML 0.400-4.100 = 2821) [id number] 04:24:15 Test Item Value Reference Range Interpretation Comments RPR RESULT (test code = NON-REACTIVE NON-REACTIVE 3501) RPR TITER (test code = 3500) NOT INDIC. TITER NOT INDIC. HIV 1/2 4TH GEN, RFLX [id number] 03:26:14 Test Item Value Reference Range Interpretation Comments HIV 1/2 4TH GEN, RFLX CONF (test NON-REACTIVE NON-REACTIVE code = 3514) HEPATITIS PANEL, [id number] 03:26:14 Test Item Value Reference Range Interpretation Comments HEPATITIS A IgM (test NON-REACTIVE NON-REACTIVE code = 80404) HEPATITIS B CORE IgM NON-REACTIVE NON-REACTIVE (test code = 4644) HEPATITIS B SURF AG NON-REACTIVE NON-REACTIVE (test code = 2739) HEPATITIS C ANTIBODY NON-REACTIVE NON-REACTIVE (test code = 4675) INTERPRETATION (NOTE) Hepatitis A HEPATITIS A: (test code sero logy shows no = 2552) evidence of acu te hepatitis A. INTERPRETATION (NOTE) Hepatitis B HEPATITIS B: (test code sero logy shows no = 13585) evidence of acu te hepatitis B and no indication of exposure to hepatitis B vir us in the previous zafar eight months. INTERPRETATION (NOTE) Hepatitis C HEPATITIS C: (test code sero logy shows no = 87978) evidence of exposure to hepatitisC viru s at this time. I t can take up to 12 months after exposure tothe hepatitis C vir us for antibodies to become detectab le in the blood in certain patient s. HEMOGLOBIN [id number] 03:14:58 Test Item Value Reference Range Interpretation Comments HEMOGLOBIN A1c (test code = 77481) 6.0 % 4.2-5.6 H VAGINAL PATHOGENS DNA [id number] 15:17:18 Test Item Value Reference Range Interpretation Comments SVETLANA SPECIES (test NEGATIVE NEGATIVE code = ) G. VAGINALIS (test POSITIVE NEGATIVE A code = ) T. VAGINALIS (test NEGATIVE NEGATIVE UNLESS O THERWISE code = 84924) INDICATED, ALL TESTING PERFORMED [facility] NICAL PATHOLOGY [facility], [facility]. [address] [place] [address] LABORATORY DIRE CTOR: CODY LMAB M.D. CLIA NUMBER [id number] [place] [id number] Choriogonadotropin.intact+Beta subunit [Units/volume] in Serum or Plasma 2020-09-25 00:00:00 Test Item Value Reference Range Interpretation Comments Choriogonadotropin.intact+Beta 8 mIU/mL subunit [Units/volume] in Serum or Plasma (test code = 68310-5) [facility] [id number] 11:18:00 Test Item Value Reference Range Interpretation Comments urine beta hcg (test Negative, Control code = urine beta hcg) Present (11/15/19 6:18 AM) Genia Adrian
[2022-12-16] MEDS ORDERED: dexAMETHasone 10 MG/ML VIAL ONE (20:23)
[2022-12-16 20:24] LABS: Absolute Lymphocytes (CBC) 4.1 K/uL (0.7-4.9); Hematocrit 45.7 % (36.0-45.0); Lymphocytes % 31.7 % (15.3-44.8); MCV 77.1 fL (80-100); MPV 8.9 fL (7.6-11.3); Platelets 331 thou/uL (152-406); RBC Red Blood Cell Count 5.92 M/uL (3.86-4.86)
[2022-12-16] MEDS ORDERED: IPRATROPIUM BROM 0.5MG/2.5ML ONE (20:24)
[2022-12-16] MEDS ORDERED: ALBUTEROL 2.5 MG/3 ML NEB SOL ONE (20:24)
--- NOTE | 2022-12-16 20:34 | RAD REPORT ---
EXAM DESCRIPTION: Ximena Single View12/16/2022 8:16 pm CLINICAL HISTORY: Chest pain;Dyspnea COMPARISON: No comparisons TECHNIQUE: Portable AP view of the chest. FINDINGS: The lungs are clear. Decreased penetration over the lower lungs is favored to relate to stein perimposition of soft tissues. No pneumothorax or effusion. The cardiomediastinal contours are unrema rkable. IMPRESSION: No acute cardiopulmonary process.
[2022-12-16 20:39] LABS: Potassium 3.2 mEq/L (3.5-5.1); Troponin High Sensitivity 4.5 pg/mL (<58.9)
[2022-12-16] MEDS ORDERED: NA CHLORIDE 0.9% 1,000 ML ONE (20:59)
--- NOTE | 2022-12-16 21:42 | EDPHYS ---
Physician Documentation [facility] Name: Jane Lechuga Age: 27 yrs Sex: Female : 1995 Arrival Date: 12/16/2022 Time: 19:42 Bed 13 Private MD: ED Physician Luzmaria Ochoa HPI: 12/16 21:48 This 27 yrs old Female presents to ER via Ambulatory with complaints of Breathing kb Difficulty. 21:54 Patient is a 27-year-old female with a history of high cholesterol and asthma who kb presents for chest pain and shortness of breath that started on Tuesday. Was seen in [place] ER on Tuesday, had negative work-up and was discharged with meloxicam. States symptoms have not resolved. Denies fever.. Historical: - Allergies: 19:56 PENICILLINS; cm10 - PMHx: 19:56 Asthma; Hypercholesterolemia; cm10 - PSHx: 19:56 section; Cholecystectomy; R ankle; cm10 - Immunization history:: Adult Immunizations unknown. - Social history:: Smoking status: unknown. ROS: 21:47 Constitutional: Negative for fever, chills, and weight loss, kb 21:47 Cardiovascular: Positive for chest pain, 21:47 Respiratory: Positive for shortness of breath, 21:47 All other systems are negative, Exam: 21:47 Constitutional: This is a well developed, well nourished patient who is awake, alert, kb and in no acute distress. Head/Face: Normocephalic, atraumatic. ENT: Moist Mucous membranes Cardiovascular: Regular rate Respiratory: Respirations even and unlabored. No increased work of breathing. Talking in full sentences Abdomen/GI: Soft, non-tender. No distention Skin: Warm, dry with normal turgor. Normal color. MS/ Extremity: Pulses equal, no cyanosis. Neurovascular intact. Full, normal range of motion. Neuro: Awake and alert, GCS 15, oriented to person, place, time, and situation. Moves all extremities. Normal gait. 21:47 Respiratory: Breath sounds: are clear throughout, 22:05 ECG was reviewed by the Attending Physician. kb Vital Signs: 19:54 BP 135 / 90; Pulse 86; Resp 18; Temp 97.8; Pulse Ox 100% on R/A; Weight 133.81 kg; cm10 Height 5 ft. 3 in. ; 20:15 BP 128 / 84; Pulse 80; Resp 12 S; Pulse Ox 100% on R/A; jw7 21:10 BP 140 / 80; Pulse 81; Resp 17 S; Pulse Ox 100% on R/A; jw7 21:30 BP 126 / 82; Pulse 84; Resp 20 S; Pulse Ox 100% on R/A; jw7 19:54 Body Mass Index 52.26 (133.81 kg, 160.02 cm) cm10 MDM: 19:52 Patient medically screened. kb 21:48 Data reviewed: vital signs, nurses notes. kb 21:48 Differential diagnosis: asthma, Bronchitis pneumonia, Pneumothorax pulmonary edema, kb Pulmonary Embolism reactive airway disease, flu, covid. Test considered but Not performed: CT: PE study considered, but d-dimer was less than 100 on Tuesday and PERC negative. . External Records Reviewed: Outside ED record: Results from [facility] from Tuesday reviewed. D-Dimer less than 100. Scoring Tools PERC Rule for PE Age >/= 50 No HR >/= 100 No O2 Sat Room Air < 95% No Unilateral leg swelling No Hemoptysis No Recent surgery or trauma </= 4 wks ago requiring treatment with general anesthesia No (0 pt) Prior PE or DVT No Hormone use (Oral contraceptives, hormone replacement or estrogenic hormones use in males or female patients No. Counseling: I had a detailed discussion with the patient and/or guardian regarding the historical points, exam findings, and any diagnostic results supporting the discharge/admit diagnosis, lab results, radiology results, the need for outpatient follow up, a family practitioner, a analytical lab technician, to return to the emergency department if symptoms worsen or persist or if there are any questions or concerns that arise at home. 12/16 19:56 Order name: Basic Metabolic Panel; Complete Time: 20:52 kb 12/16 19:56 Order name: CBC with Diff; Complete Time: 20:26 kb 12/16 19:56 Order name: Magnesium; Complete Time: 20:52 kb 12/16 19:56 Order name: NT PRO-BNP; Complete Time: 20:52 kb 12/16 19:56 Order name: Troponin HS; Complete Time: 20:52 kb 12/16 19:56 Order name: XRAY Chest (1 view); Complete Time: 20:35 kb 12/16 19:56 Order name: EKG; Complete Time: 19:57 kb 12/16 19:56 Order name: Cardiac monitoring; Complete Time: 20:05 kb 12/16 19:56 Order name: EKG - Nurse/Tech; Complete Time: 20:00 kb 12/16 19:56 Order name: IV Saline Lock; Complete Time: 20:05 kb 12/16 19:56 Order name: Labs collected and sent; Complete Time: 20:05 kb 12/16 19:56 Order name: O2 Per Protocol; Complete Time: 20:01 kb 12/16 19:56 Order name: O2 Sat Monitoring; Complete Time: 20:00 kb EC:05 Rate is 78 beats/min. Rhythm is regular. QRS Winner is Normal. MD interval is normal at kb 160 msec. QRS interval is normal at 82 msec. QT interval is normal at 419 msec. Administered Medications: 20:21 Drug: DuoNeb Nebulize (3:1) (2.5 mg - 0.5 mg) 3 ml Nebulizer once Route: Nebulizer; jw7 21:43 Follow up: Response: No adverse reaction; Marked relief of symptoms jw7 20:21 Drug: Decadron - Dexamethasone IVP 10 mg IVP once Route: IVP; Site: right antecubital; jw7 21:43 Follow up: Response: No adverse reaction; Marked relief of symptoms jw7 20:50 Drug: NS 0.9% IV 1000 ml IV at 1000 ml once Route: IV; Rate: 1000 ml; Site: right eh3 antecubital; 21:44 Follow up: Response: No adverse reaction; IV Status: Completed infusion; IV Intake: jw7 1000ml 20:52 CANCELLED (Duplicate Order): ns 0.9% 1000 ml IV at 1000 ml once kb 21:43 Drug: Ativan IVP 1 mg IVP once Route: IVP; Site: right antecubital; jw7 22:02 Follow up: Response: No adverse reaction; Marked relief of symptoms jw7 Disposition Summary: 12/16/22 21:41 Discharge Ordered Notes: Location: Home Condition: Stable kb Diagnosis - Chest pain, unspecified kb - Dyspnea kb Followup: kb - With: Emergency Department - When: As needed - Reason: Worsening of condition Followup: kb - With: Private Physician - When: 2 - 3 days - Reason: Recheck today's complaints, Continuance of care, Re-evaluation by your physician Discharge Instructions: - Discharge Summary Sheet kb - Shortness of Breath, Adult, [id number] kb - Nonspecific Chest Pain, Adult, [id number] kb Forms: - Medication Reconciliation Form kb - Thank You Letter kb - Antibiotic Education kb - Prescription Opioid Use kb - Patient Portal Instructions kb - Leadership Thank You Letter kb Prescriptions: - albuterol sulfate 90 mcg/actuation Inhalation HFA Aerosol Inhaler - inhale 2 puff INHALATION route every 4 to 6 hours As needed; 1 unit; Refills: kb 0, Product Selection Permitted - Prednisone 20 mg Oral Tablet - take 1 tablet ORAL route once daily for 5 days; 5 tablet; Refills: 0, Product kb Selection Permitted Signatures: Dispatcher [employer] EDJane Mcgovern, JOSE ROSARIO-Annia Marin, RN RN jw7 Jacinta Diaz RN RN eh3 Flavia Ayala, RN RN cm10 Corrections: (The following items were deleted from the chart) 20:52 20:52 NS 0.9% IV 1000 ml IV at 1000 ml once ordered. kb kb
--- NOTE | 2022-12-16 21:42 | ER ---
Nurse's Notes [facility] Name: Jane Lechuga Age: 27 yrs Sex: Female : 1995 Arrival Date: 12/16/2022 Time: 19:42 Bed 13 Private MD: Diagnosis: Chest pain, unspecified;Dyspnea Presentation: 12/16 19:54 Chief complaint: Patient states: chest pain and shortness of breath onset Tuesday. Pt cm10 states that the shortness of breath is intermittent and got worse an hour ago. Pt hyper-ventilating in triage. Coronavirus screen: Client denies travel out of the [place] in the last 14 days. Ebola Screen: Patient denies travel to an Ebola-affected area in the 21 days before illness onset. No symptoms or risks identified at this time. Initial Sepsis Screen: Does the patient meet any 2 criteria? No. Patient's initial sepsis screen is negative. Does the patient have a suspected source of infection? No. Patient's initial sepsis screen is negative. Risk Assessment: Do you want to hurt yourself or someone else? Patient reports no desire to harm self or others. Onset of symptoms was December 16, 2022. 19:54 Method Of Arrival: Ambulatory cm10 19:54 Acuity: LENORE 2 cm10 Triage Assessment: 20:00 General: Appears distressed, uncomfortable, Behavior is calm, cooperative, anxious. jw7 Pain: Complains of pain in abdomen and left leg Pain radiates to left leg Pain currently is 6 out of 10 on a pain scale. Quality of pain is described as heavy, pressure, Pain began suddenly, Is continuous, Noted to be moaning, resistant to movement. EENT: No deficits noted. No signs and/or symptoms were reported regarding the EENT system. Neuro: Sky Agitation-Sedation Scale (RASS): 0 - Alert and Calm Level of Consciousness is awake, alert, obeys commands, Oriented to person, place, time, situation. Cardiovascular: Heart tones S1 S2 present Capillary refill < 3 seconds Clubbing of nail beds is absent JVD is absent Patient's skin is warm and dry. Cardiovascular: Reports chest pain, shortness of breath. Respiratory: Reports shortness of breath at rest on exertion labored breathing Airway is patent Trachea midline Respiratory effort is even, labored, Respiratory pattern is regular, tachypnea Inspiratory wheezing Onset: The symptoms/episode began/occurred started giovanny, the patient has moderate shortness of breath. GI: Abdomen is round non-distended, Bowel sounds present X 4 quads. Abd is soft and non tender X 4 quads. Reports bloating, heaviness to abdomen. : No deficits noted. No signs and/or symptoms were reported regarding the genitourinary system. Derm: No deficits noted. No signs and/or symptoms reported regarding the dermatologic system. Musculoskeletal: No deficits noted. No signs and/or symptoms reported regarding the musculoskeletal system. Historical: - Allergies: 19:56 PENICILLINS; cm10 - PMHx: 19:56 Asthma; Hypercholesterolemia; cm10 - PSHx: 19:56 section; Cholecystectomy; R ankle; cm10 - Immunization history:: Adult Immunizations unknown. - Social history:: Smoking status: unknown. Screenin:00 [facility] ED Fall Risk Assessment (Adult) History of falling in the last 3 months, jw7 including since admission No falls in past 3 months (0 pts) Score/Fall Risk Level 0 - 2 = Low Risk Oriented to surroundings, Maintained a safe environment. Abuse screen: Denies threats or abuse. Denies injuries from another. Nutritional screening: No deficits noted. Tuberculosis screening: No symptoms or risk factors identified. Assessment: 20:10 General: see triage assessment. jw7 21:23 Reassessment: Patient appears in no apparent distress at this time. Patient and/or jw7 family updated on plan of care and expected duration. Pain level reassessed. Patient is alert, oriented x 3, equal unlabored respirations, skin warm/dry/pink. Patient states feeling better. Cardiovascular: Rhythm is sinus rhythm. 21:59 Reassessment: Patient appears in no apparent distress at this time. Patient and/or jw7 family updated on plan of care and expected duration. Pain level reassessed. Patient is alert, oriented x 3, equal unlabored respirations, skin warm/dry/pink. Patient denies pain at this time. Patient states feeling better. Patient states symptoms have improved. Vital Signs: 19:54 BP 135 / 90; Pulse 86; Resp 18; Temp 97.8; Pulse Ox 100% on R/A; Weight 133.81 kg; cm10 Height 5 ft. 3 in. ; 20:15 BP 128 / 84; Pulse 80; Resp 12 S; Pulse Ox 100% on R/A; jw7 21:10 BP 140 / 80; Pulse 81; Resp 17 S; Pulse Ox 100% on R/A; jw7 21:30 BP 126 / 82; Pulse 84; Resp 20 S; Pulse Ox 100% on R/A; jw7 19:54 Body Mass Index 52.26 (133.81 kg, 160.02 cm) cm10 ED Course: 19:46 Patient arrived in ED. ag3 19:52 [facility] Peters [facility]C [facility] kb 19:52 Luzmaria Ochoa MD is Attending Physician. kb 19:56 Triage completed. cm10 19:56 Arm band placed on Patient placed in an exam room, on a stretcher. cm10 20:00 Patient has correct armband on for positive identification. Bed in low position. Call jw7 light in reach. Side rails up X2. 20:05 Inserted saline lock: 22 gauge in right antecubital area, using aseptic technique. as6 Blood collected. Done by Angélica MATHUR. 20:06 Annia Perez, RN is Primary Nurse. jw7 20:18 XRAY Chest (1 view) In Process Unspecified. EDMS 22:02 No provider procedures requiring assistance completed. IV discontinued, intact, jw7 bleeding controlled, No redness/swelling at site. Pressure dressing applied. 22:03 Provided Education on: discharge instructions and medication usage. jw7 Administered Medications: 20:21 Drug: DuoNeb Nebulize (3:1) (2.5 mg - 0.5 mg) 3 ml Nebulizer once Route: Nebulizer; jw7 21:43 Follow up: Response: No adverse reaction; Marked relief of symptoms jw7 20:21 Drug: Decadron - Dexamethasone IVP 10 mg IVP once Route: IVP; Site: right antecubital; jw7 21:43 Follow up: Response: No adverse reaction; Marked relief of symptoms jw7 20:50 Drug: NS 0.9% IV 1000 ml IV at 1000 ml once Route: IV; Rate: 1000 ml; Site: right eh3 antecubital; 21:44 Follow up: Response: No adverse reaction; IV Status: Completed infusion; IV Intake: jw7 1000ml 20:52 CANCELLED (Duplicate Order): ns 0.9% 1000 ml IV at 1000 ml once kb 21:43 Drug: Ativan IVP 1 mg IVP once Route: IVP; Site: right antecubital; jw7 22:02 Follow up: Response: No adverse reaction; Marked relief of symptoms jw7 Medication: 22:03 VIS not applicable for this client. jw7 Intake: 21:44 IV: 1000ml; Total: 1000ml. jw7 Outcome: 21:41 Discharge ordered by MD. paz 22:02 Discharged to home via wheelchair, with family, jw7 22:02 Condition: stable 22:02 Discharge instructions given to patient, Instructed on discharge instructions, follow up and referral plans. medication usage, Demonstrated understanding of instructions, follow-up care, medications, Prescriptions given X 2, 22:04 Patient left the ED. jw7 Signatures: Dispatcher [employer] EDMS Jane Peters, MARLENE-C SIGN LETTERER-CkSherry Jane ag3 José Orozco RN RN as6 Annia Perez RN RN jw7 Jacinta Diaz RN RN 3 Flavia Ayala RN RN cm10 Corrections: (The following items were deleted from the chart) 20:08 19:54 Chief complaint: Patient states: chest pain and shortness of breath onset Tuesday. cm10 Pt states that the shortness of breath is intermittent and got worse an hour ago. Pt gasping while speaking. cm10 21:27 20:00 Respiratory: Reports shortness of breath at rest on exertion labored breathing jw7 Airway is patent Trachea midline Respiratory effort is even, labored, Respiratory pattern is regular, tachypnea Inspiratory wheezing Onset: The symptoms/episode began/occurred today, the patient has moderate shortness of breath jw7 21: 21:23 Reassessment: Patient appears in no apparent distress at this time. Patient jw7 and/or family updated on plan of care and expected duration. Pain level reassessed. Patient is alert, oriented x 3, equal unlabored respirations, skin warm/dry/pink. Patient states feeling better. jw7
[2022-12-16] MEDS ORDERED: LORazepam 2 MG/ML VIAL ONE (21:53)
[2022-12-16 22:14] VITALS: TEMP 97.8; O2SAT 100
[2022-12-16 22:31] VITALS: BP 126/82
== END 2022-12-16 22:04 | disposition home or self-care (01) ==
LOC: ER 19:42
DX: R07.89 Other chest pain (principal); R06.00 Dyspnea, unspecified; Z88.0 Allergy status to penicillin
CPT/HCPCS: 96361; 93005; 85025; 80048; 36415; 83735; 84484; 83880; 71045; 94640; 96375; 96374; 99285; J7613; J7644; J1100; J7030